=== PATIENT | female | born 1940 | race Caucasian/White ===

== ENCOUNTER 2019-01-21 08:20 | Outpatient (CLI) | payer MEDICARE, OTHER ==
[2019-01-21 11:06] LABS: BASOPHILS % (AUTO) 0.2 %; EOSINOPHILS # (AUTO) 0.2 10^3/uL (0.0-0.7); HGB - HEMOGLOBIN 14.2 g/dL (12.0-16.0); LYMPHOCYTES # (AUTO) 1.8 10^3/uL (1.5-3.5); LYMPHOCYTES % (AUTO) 23.5 %; MEAN CORPUSCULAR HEMOGLOBIN 29.7 pg (27.0-31.0); MEAN CORPUSCULAR HGB CONC 32.7 g/dL (32.0-36.0); MEAN CORPUSCULAR VOLUME 90.6 fL (81.0-99.0); MEAN PLATELET VOLUME 8.3 fL (7.9-10.8); MONOCYTES # (AUTO) 0.6 10^3/uL (0.0-1.0); MONOCYTES % (AUTO) 7.3 %; NEUTROPHILS # (AUTO) 5.2 10^3/uL (1.5-6.6); PLT - PLATELET COUNT 295 10^3/uL (130-450); RED CELL DISTRIBUTION WIDTH 13.7 % (12.0-15.0); WHITE BLOOD COUNT 7.8 x10^3/uL (4.8-10.8)
[2019-01-21 11:27] LABS: ALBUMIN 3.9 g/dL (3.2-5.5); ALBUMIN/GLOBULIN RATIO 1.2 (1.0-2.2); ALKALINE PHOSPHATASE 63 IU/L (42-121); ALT ALANINE AMINOTRANSFERASE 15 IU/L (10-60); AST ASPARTATE AMINOTRANSFERASE 19 IU/L (10-42); BILIRUBIN,TOTAL 0.6 mg/dL (0.2-1.0); BUN - BLOOD UREA NITROGEN 23 mg/dL (6-20); CALCIUM 8.9 mg/dL (8.5-10.3); CARBON DIOXIDE - CO2 25 mmol/L (21-32); CHLORIDE 105 mmol/L (101-111); CHOL/HDL RATIO 6.4 (<4.4); CHOLESTEROL 205 mg/dL; CREATININE 1.1 mg/dL (0.4-1.0); GFR - MDRD 48 (>89); GLUCOSE 115 mg/dL (70-100); HDL CHOLESTEROL 32 mg/dL; LDL CHOLESTEROL,CALCULATED 133 mg/dL; LDL/HDL RATIO 4.2 (<4.4); SODIUM 140 mmol/L (135-145); TOTAL PROTEIN 7.2 g/dL (6.7-8.2); VLDL CHOLESTEROL 40 mg/dL
[2019-01-21 12:02] LABS: HB2 TOTAL 15.4 g/dL; HEMOGLOBIN A1C 0.62 g/dL; HEMOGLOBIN A1C % 5.8 % (4.6-6.2)
== END 2019-01-21 08:21 | disposition home or self-care (01) ==
LOC: LAB.F 08:20
PROVIDERS: ATTEND Registered Nurse
DX: R53.83 Other fatigue (principal); R06.2 Wheezing; F31.9 Bipolar disorder, unspecified; R06.09 Other forms of dyspnea
CPT/HCPCS: 36415; 80053; 80061; 83036; 83721; 84443; 85025

== ENCOUNTER 2019-08-31 14:35 | Outpatient (CLI) | payer MEDICARE, OTHER ==
--- NOTE | 2019-09-01 08:26 | XRAY Report ---
Reason: WHEEZING, SOA Procedure Date: 08/31/2019 Accession Number: [id number] / [id number] Procedure: XRS - Chest 2 View X-Ray CPT Code: 27328 Final Report FULL RESULT: EXAM: CHEST RADIOGRAPHY EXAM DATE: 08/31/2019 02:50 PM. CLINICAL HISTORY: WHEEZING, SOA. COMPARISON: None. TECHNIQUE: 2 views. FINDINGS: Lungs/Pleura: Mild left basilar atelectasis. No pleural effusion. No pneumothorax. Decreased volumes. Right apical pleural thickening. Mediastinum: Heart and mediastinal contours are unremarkable. Other: None. IMPRESSION: Mild left basilar atelectasis RADIA
== END 2019-08-31 14:36 | disposition home or self-care (01) ==
LOC: DI.S 14:35
PROVIDERS: ATTEND Registered Nurse
DX: J98.11 Atelectasis (principal)
CPT/HCPCS: 71046

== ENCOUNTER 2020-12-23 13:10 | Emergency (ER) | payer MEDICARE, OTHER ==
--- NOTE | 2020-12-23 13:37 | ED Physician Documentation ---
PD HPI ALTERED MENTAL STATUS - Stated complaint Stated Complaint: CONFUSION/WEAKNESS - Chief complaint Chief Complaint: Neuro - History obtained from History obtained from: Patient, Family - Additional information Additional information: This is a 80-year-old woman who is a resident of an adult family home because of schizophrenia and bipolar disorder. They took her to urgent care this morning because over the last 4 days or so she has been confused and lethargic. She really has no other complaints. She denies chest pain, pedal edema, calf pain, shortness of breath, cough, urinary symptoms. They did note her to have borderline pulse oximetry's at urgent care and tachycardia. She denies headache. Review of Systems Ten Systems: 10 systems reviewed and negative Constitutional: reports: Chills, Fatigue. denies: Fever Nose: denies: Rhinorrhea / runny nose Throat: denies: Sore throat Cardiac: denies: Chest pain / pressure, Palpitations Respiratory: denies: Dyspnea, Cough PD PAST MEDICAL HISTORY - Present Medications Home Medications: Ambulatory Orders Medication Instructions Recorded Confirmed Albuterol Sulf [Ventolin Hfa 2 puffs INH QID 12/23/20 12/23/20 Inhaler] Ipratropium [Atrovent] 2 puffs INH QID 12/23/20 12/23/20 Levothyroxine Sodium [Synthroid] 50 mcg PO DAILY 12/23/20 12/23/20 Montelukast [Singulair] 10 mg PO DAILY 12/23/20 12/23/20 OLANZapine [Zyprexa] 20 mg PO DAILY 12/23/20 12/23/20 Olanzapine [Zyprexa] 10 mg PO QPM 12/23/20 12/23/20 Sertraline [Zoloft] 50 mg PO DAILY 12/23/20 12/23/20 - Allergies Allergies/Adverse Reactions: Allergies Allergy/AdvReac Type Severity Reaction Status Date / Time Penicillins Allergy Respiratory Verified 12/23/20 13:15 Sulfa (Sulfonamide Allergy Hives Verified 12/23/20 13:15 Antibiotics) PD ED PE NORMAL - Vitals Vital signs reviewed: Yes - General General: Alert and oriented X 3 (fumbles with the hospital name but gets it, knows the date, breakfast) - HEENT HEENT: PERRL, EOMI - Neck Neck: Supple, no meningeal sign, No bony TTP - Cardiac Cardiac: RRR, No murmur - Respiratory Respiratory: No respiratory distress, Clear bilaterally - Abdomen Abdomen: Normal bowel sounds, Soft, Non tender - Back Back: No CVA TTP, No spinal TTP - Derm Derm: Normal color, Warm and dry - Extremities Extremities: No edema, No calf tenderness / cord - Neuro Neuro: Alert and oriented X 3, No motor deficit, No sensory deficit, Normal speech Eye Opening: Spontaneous Motor: Obeys Commands Verbal: Oriented GCS Score: 15 Results - Vitals Vitals: Vital Signs - 24 hr 12/23/20 13:18 Temperature 37.1 C Heart Rate 93 Respiratory 19 Rate Blood Pressure 141/75 H O2 Saturation 100 Oxygen O2 Source Room air - EKG (time done) 1353 Rate: Rate (enter#) (91) Rhythm: NSR (w pac) [place]: LAD QRS: Low voltage Ischemia: Non specific changes. No: ST elevation c/w ischemia, ST depression Computer interpretation: Agree with computer - Labs Labs: Laboratory Tests 12/23/20 12/23/20 12/23/20 13:47 13:47 13:47 WBC 11.1 H RBC 4.60 Hgb 14.1 Hct 43.3 MCV 94.1 MCH 30.7 MCHC 32.6 RDW 13.0 Plt Count 269 MPV 9.1 Neut # (Auto) 7.5 H Lymph # (Auto) 2.2 [place] # (Auto) 1.1 H Eos # (Auto) 0.2 Baso # (Auto) 0.0 Absolute Nucleated RBC 0.00 Nucleated RBC % 0.0 Sodium 137 Potassium 4.2 Chloride 106 Carbon Dioxide 23 Anion Gap 8.0 BUN 23 H Creatinine 0.9 Estimated GFR (MDRD) 61 L Glucose 92 Calcium 9.3 Total Bilirubin 0.5 AST 19 ALT 13 Alkaline Phosphatase 63 Troponin I High Sens 7.8 Total Protein 7.5 Albumin 4.3 Globulin 3.2 Albumin/Globulin Ratio 1.3 Urine Color Urine Clarity Urine pH Ur Specific [place] Urine Protein Urine Glucose (UA) Urine Ketones Urine Occult Blood Urine Nitrite Urine Bilirubin Urine Urobilinogen Ur Leukocyte Esterase Ur Microscopic Review Urine Culture Comments Urine Opiates Screen Ur Oxycodone Screen Urine Methadone Screen Ur Propoxyphene Screen Ur Barbiturates Screen Ur Tricyclics Screen Ur Phencyclidine Scrn Ur Amphetamine Screen U Methamphetamines Scrn U Benzodiazepines Scrn Urine Cocaine Screen U Cannabinoids Screen Ethyl Alcohol 5.7 12/23/20 13:55 WBC RBC Hgb Hct MCV MCH MCHC RDW Plt Count MPV Neut # (Auto) Lymph # (Auto) [place] # (Auto) Eos # (Auto) Baso # (Auto) Absolute Nucleated RBC Nucleated RBC % Sodium Potassium Chloride Carbon Dioxide Anion Gap BUN Creatinine Estimated GFR (MDRD) Glucose Calcium Total Bilirubin AST ALT Alkaline Phosphatase Troponin I High Sens Total Protein Albumin Globulin Albumin/Globulin Ratio Urine Color YELLOW Urine Clarity CLEAR Urine pH 6.0 Ur Specific [place] 1.010 Urine Protein NEGATIVE Urine Glucose (UA) NEGATIVE Urine Ketones NEGATIVE Urine Occult Blood NEGATIVE Urine Nitrite NEGATIVE Urine Bilirubin NEGATIVE Urine Urobilinogen 0.2 (NORMAL) Ur Leukocyte Esterase NEGATIVE Ur Microscopic Review NOT INDICATED Urine Culture Comments NOT INDICATED Urine Opiates Screen NEGATIVE Ur Oxycodone Screen NEGATIVE Urine Methadone Screen NEGATIVE Ur Propoxyphene Screen NEGATIVE Ur Barbiturates Screen NEGATIVE Ur Tricyclics Screen NEGATIVE Ur Phencyclidine Scrn NEGATIVE Ur Amphetamine Screen NEGATIVE U Methamphetamines Scrn NEGATIVE U Benzodiazepines Scrn NEGATIVE Urine Cocaine Screen NEGATIVE U Cannabinoids Screen NEGATIVE Ethyl Alcohol - Rads (name of study) 1v chest xr Radiology: EMP read contemporaneously (normal) PD MEDICAL DECISION MAKING - ED course ED course: 80-year-old woman with predominantly psychiatric history presents with confusion per POA/family, albeit seems mild on exam. Otherwise her exam and work-up was unremarkable here without a clear cause for this. There was no headache or focal neurologic deficit. Patient has no complaints. Close watchful waiting and return precautions were advised. Departure - Departure Disposition: 01 Home, Self Care Clinical Impression: Confusion Condition: Good Record reviewed to determine appropriate education?: Yes Instructions: ED Confusion Comments: No clear cause for confusion today. Call your psychiatrist to see if he/she wants to see you or change psychiatric medications. Return if worse in any way.
[2020-12-23 13:53] LABS: BASOPHILS % (AUTO) 0.1 %; EOSINOPHILS # (AUTO) 0.2 10^3/uL (0.0-0.7); EOSINOPHILS % (AUTO) 1.9 %; HCT - HEMATOCRIT 43.3 % (37.0-47.0); HGB - HEMOGLOBIN 14.1 g/dL (12.0-16.0); LYMPHOCYTES # (AUTO) 2.2 10^3/uL (1.5-3.5); LYMPHOCYTES % (AUTO) 19.4 %; MEAN CORPUSCULAR HEMOGLOBIN 30.7 pg (27.0-31.0); MEAN CORPUSCULAR HGB CONC 32.6 g/dL (32.0-36.0); MEAN CORPUSCULAR VOLUME 94.1 fL (81.0-99.0); MEAN PLATELET VOLUME 9.1 fL (7.9-10.8); MONOCYTES # (AUTO) 1.1 10^3/uL (0.0-1.0); MONOCYTES % (AUTO) 10.3 %; NEUTROPHILS # (AUTO) 7.5 10^3/uL (1.5-6.6); PLT - PLATELET COUNT 269 10^3/uL (130-450); WHITE BLOOD COUNT 11.1 x10^3/uL (4.8-10.8)
--- NOTE | 2020-12-23 13:56 | XRAY Report ---
PROCEDURE: Chest 1 View X-Ray INDICATIONS: hypoxemia TECHNIQUE: One view of the chest was acquired. COMPARISON: None FINDINGS: Surgical changes and devices: None. Lungs and pleura: No pleural effusions or pneumothorax. Lungs are clear. Mediastinum: Mediastinal contours appear normal. Heart size is normal. Bones and chest wall: No suspicious bony lesions. Overlying soft tissues appear unremarkable. IMPRESSION: Normal chest x-ray. Reviewed by: Jaun Alvarez on 12/23/2020 1:55 PM PDT Approved by: Jaun Alvarez on 12/23/2020 1:55 PM PDT Station ID: [id number]
[2020-12-23 13:59] LABS: MUDS CUTOFF CONCENTRATIONS CUTOFF CONC BELOW:
[2020-12-23 14:02] LABS: BILIRUBIN,URINE NEGATIVE (NEGATIVE); GLUCOSE, URINE (UA) NEGATIVE (NEGATIVE); KETONES,URINE (UA) NEGATIVE (NEGATIVE); LEUKOCYTE ESTERASE, URINE NEGATIVE (NEGATIVE); NITRITE,URINE NEGATIVE (NEGATIVE); OCCULT BLOOD,URINE NEGATIVE (NEGATIVE); PROTEIN,URINE NEGATIVE (NEGATIVE); UROBILINOGEN,URINE 0.2 (NORMAL) E.U./dL (NORMAL)
[2020-12-23 14:04] LABS: CLARITY,URINE CLEAR (CLEAR)
[2020-12-23 14:09] LABS: ALBUMIN 4.3 g/dL (3.2-5.5); ALBUMIN/GLOBULIN RATIO 1.3 (1.0-2.2); BILIRUBIN,TOTAL 0.5 mg/dL (0.2-1.0); CALCIUM 9.3 mg/dL (8.5-10.3); CREATININE 0.9 mg/dL (0.4-1.0); ETOH - ETHANOL 5.7 mg/dL; POTASSIUM 4.2 mmol/L (3.5-5.0); TOTAL PROTEIN 7.5 g/dL (6.7-8.2)
[2020-12-23 14:13] LABS: AMPHETAMINE SCREEN,URINE NEGATIVE (NEGATIVE); BARBITURATE SCREEN,UR NEGATIVE (NEGATIVE); BENZODIAZEPINES SCREEN, URINE NEGATIVE (NEGATIVE); COCAINE SCREEN URINE NEGATIVE (NEGATIVE); METHADONE SCREEN, URINE NEGATIVE (NEGATIVE); METHAMPHETAMINES SCREEN, URINE NEGATIVE (NEGATIVE); OPIATE SCREEN, URINE NEGATIVE (NEGATIVE); OXYCODONE SCREEN, URINE NEGATIVE (NEGATIVE); PROPOXYPHENE SCREEN, URINE NEGATIVE (NEGATIVE); THC CANNABINOID SCREEN, URINE NEGATIVE (NEGATIVE); TRICYCLIC ANTIDEPRESSANT,URINE NEGATIVE (NEGATIVE)
[2020-12-23 14:37] VITALS: BP 118/69
== END 2020-12-23 14:38 | disposition home or self-care (01) ==
LOC: ED 13:10
DX: R41.0 Disorientation, unspecified (principal); R53.83 Other fatigue; I49.1 Atrial premature depolarization; F25.0 Schizoaffective disorder, bipolar type
CPT/HCPCS: 36415; 71045; 80053; 80306; 81003; 84484; 85025; 93005; 99283; 99284; G0480; 80320; 81001; 87086

== ENCOUNTER 2021-02-15 08:00 | Outpatient (CLI) | payer MEDICARE, OTHER ==
[2021-02-15 20:32] LABS: BILIRUBIN,URINE NEGATIVE (NEGATIVE); GLUCOSE, URINE (UA) NEGATIVE (NEGATIVE); KETONES,URINE (UA) NEGATIVE (NEGATIVE); LEUKOCYTE ESTERASE, URINE SMALL (NEGATIVE); NITRITE,URINE NEGATIVE (NEGATIVE); OCCULT BLOOD,URINE NEGATIVE (NEGATIVE); PROTEIN,URINE NEGATIVE (NEGATIVE); UROBILINOGEN,URINE 1 (NORMAL) E.U./dL (NORMAL)
[2021-02-15 20:50] LABS: BACTERIA,URINE Many /HPF (None Seen); CLARITY,URINE CLEAR (CLEAR); RBC,URINE 0-5 /HPF (0-5); SQUAMOUS EPITHELIAL CELL,UR FEW Squamous (<= Few)
== END 2021-02-15 23:59 | disposition home or self-care (01) ==
LOC: LAB.S 08:00
PROVIDERS: ATTEND Emergency Medicine
DX: R30.0 Dysuria (principal)
CPT/HCPCS: 81001; 87086

== ENCOUNTER 2021-07-04 14:19 | Outpatient (CLI) | payer MEDICARE, OTHER ==
[2021-07-04 14:36] LABS: BASOPHILS % (AUTO) 0.1 %; EOSINOPHILS # (AUTO) 0.2 10^3/uL (0.0-0.7); EOSINOPHILS % (AUTO) 2.5 %; HGB - HEMOGLOBIN 13.8 g/dL (12.0-16.0); LYMPHOCYTES # (AUTO) 2.3 10^3/uL (1.5-3.5); LYMPHOCYTES % (AUTO) 26.8 %; MEAN CORPUSCULAR HEMOGLOBIN 30.3 pg (27.0-31.0); MEAN CORPUSCULAR HGB CONC 32.1 g/dL (32.0-36.0); MEAN CORPUSCULAR VOLUME 94.3 fL (81.0-99.0); MEAN PLATELET VOLUME 9.4 fL (7.9-10.8); MONOCYTES # (AUTO) 0.7 10^3/uL (0.0-1.0); NEUTROPHILS # (AUTO) 5.5 10^3/uL (1.5-6.6); NEUTROPHILS % (AUTO) 62.4 %; PLT - PLATELET COUNT 254 10^3/uL (130-450); RED BLOOD COUNT 4.56 10^6/uL (4.20-5.40); RED CELL DISTRIBUTION WIDTH 13.5 % (12.0-15.0); WHITE BLOOD COUNT 8.7 x10^3/uL (4.8-10.8)
[2021-07-04 14:55] LABS: ALBUMIN 4.2 g/dL (3.2-5.5); ALBUMIN/GLOBULIN RATIO 1.4 (1.0-2.2); ALKALINE PHOSPHATASE 61 IU/L (42-121); ALT ALANINE AMINOTRANSFERASE 14 IU/L (10-60); AST ASPARTATE AMINOTRANSFERASE 17 IU/L (10-42); BILIRUBIN,TOTAL 0.8 mg/dL (0.2-1.0); BUN - BLOOD UREA NITROGEN 22 mg/dL (6-20); CALCIUM 9.5 mg/dL (8.5-10.3); CARBON DIOXIDE - CO2 26 mmol/L (21-32); CHLORIDE 101 mmol/L (101-111); CHOL/HDL RATIO 5.8 (<4.4); CHOLESTEROL 208 mg/dL; CREATININE 1.2 mg/dL (0.4-1.0); GFR - MDRD 43 (>89); GLUCOSE 123 mg/dL (70-100); HDL CHOLESTEROL 36 mg/dL; LDL CHOLESTEROL,CALCULATED 94 mg/dL; LDL/HDL RATIO 2.6 (<4.4); POTASSIUM 3.9 mmol/L (3.5-5.0); SODIUM 141 mmol/L (135-145); TOTAL PROTEIN 7.2 g/dL (6.7-8.2); TRIGLYCERIDES 392 mg/dL; VLDL CHOLESTEROL 78 mg/dL
[2021-07-04 15:06] LABS: THYROID STIMULATING HORMONE 3.41 uIU/mL (0.34-5.60)
== END 2021-07-04 14:20 | disposition home or self-care (01) ==
LOC: LAB 14:19
PROVIDERS: ATTEND Registered Nurse
DX: F20.9 Schizophrenia, unspecified (principal); R53.83 Other fatigue; F31.9 Bipolar disorder, unspecified; J44.9 Chronic obstructive pulmonary disease, unspecified
CPT/HCPCS: 36415; 80053; 80061; 83721; 84443; 85025

== ENCOUNTER 2021-07-18 10:47 | Outpatient (CLI) | payer MEDICARE, OTHER | END 2021-07-18 10:48 | disposition critical access hospital (66) | LOC: EMS 10:47 | DX: R46.89 Other symptoms and signs involving appearance and behavior (principal) | CPT/HCPCS: A0425; A0429 ==

== ENCOUNTER 2021-07-18 11:03 | Emergency (ER) | payer MEDICARE, OTHER ==
[2021-07-18 11:30] LABS: MUDS CUTOFF CONCENTRATIONS CUTOFF CONC BELOW:
--- NOTE | 2021-07-18 11:35 | ED Physician Documentation ---
History of Present Illness - Stated complaint Stated Complaint: ALOC - Chief complaint Chief Complaint: General - History obtained from History obtained from: Patient, EMS - History of Present Illness Timing: Today Pain level max: 0 Pain level now: 0 - Additonal information Additional information: Patient is a 80-year-old female with a history of schizophrenia and bipolar who was brought in by EMS today. She lives in an adult family home and allegedly recently she has been "acting different than normal". It is unclear exactly how she has different than normal. The patient states that she has made changes in her life to make her happier and she is feeling happier than she normally feels. The patient has no complaints. Denies any hallucinations. Denies any suicidal or homicidal ideation. No fevers. No chills. Nothing makes it better or worse. Review of Systems Ten Systems: 10 systems reviewed and negative Constitutional: denies: Fever, Chills Respiratory: denies: Cough GI: denies: Nausea, Vomiting, Diarrhea Skin: denies: Rash Musculoskeletal: denies: Neck pain, Back pain Neurologic: denies: Headache Psychiatric: denies: Depressed, Suicidal, Homicidal, Hallucinations, Anxiety PD PAST MEDICAL HISTORY - Past Medical History Past Medical History: Yes Cardiovascular: None Respiratory: COPD Neuro: None Endocrine/Autoimmune: None GI: GERD EMERGENCY MEDICAL TECHNICIAN BASIC: None : None HEENT: Chronic vision loss Psych: Depression, Bipolar disorder, Schizophrenia Musculoskeletal: None Derm: None - Past Surgical History Past Surgical History: Yes /EMERGENCY MEDICAL TECHNICIAN BASIC: Tubal ligation - Present Medications Home Medications: Ambulatory Orders Medication Instructions Recorded Confirmed Albuterol Sulf [Ventolin Hfa 2 puffs INH Q4HR PRN 12/23/20 07/18/21 Inhaler] Ipratropium [Atrovent] 2 puffs INH QID 12/23/20 12/23/20 Levothyroxine Sodium [Synthroid] 50 mcg PO DAILY 12/23/20 12/23/20 Montelukast [Singulair] 10 mg PO DAILY 12/23/20 12/23/20 OLANZapine [Zyprexa] 10 mg PO QPM 12/23/20 07/18/21 OLANZapine [Zyprexa] 20 mg PO DAILY 12/23/20 07/18/21 Sertraline [Zoloft] 50 mg PO DAILY 12/23/20 07/18/21 Nitrofurantoin [Macrobid] 100 mg PO BID #10 cap 07/18/21 QUEtiapine [SEROquel] 100 mg PO QPM 07/18/21 07/18/21 - Allergies Allergies/Adverse Reactions: Allergies Allergy/AdvReac Type Severity Reaction Status Date / Time Penicillins Allergy Respiratory Verified 07/18/21 11:19 Sulfa (Sulfonamide Allergy Hives Verified 07/18/21 11:19 Antibiotics) - Social History Does the pt smoke?: No Smoking Status: Never smoker Does the pt drink ETOH?: Yes Does the pt have substance abuse?: Yes - Immunizations Immunizations are current?: Yes PD ED PE NORMAL - Vitals Vital signs reviewed: Yes - General General: Alert and oriented X 3, No acute distress, Well developed/nourished - HEENT HEENT: Atraumatic, PERRL, Moist mucous membranes - Neck Neck: Supple, no meningeal sign - Cardiac Cardiac: RRR, Strong equal pulses - Respiratory Respiratory: No respiratory distress, Clear bilaterally - Abdomen Abdomen: Soft, Non tender, Non distended - Derm Derm: Warm and dry - Extremities Extremities: No edema - Neuro Neuro: Alert and oriented X 3 - Psych Psych: Normal mood, Normal affect Results - Vitals Vitals: Vital Signs - 24 hr 07/18/21 07/18/21 11:19 11:37 Temperature 36.2 C L Heart Rate 108 H 101 H Respiratory 18 16 Rate Blood Pressure 186/86 H 134/85 H O2 Saturation 97 94 Oxygen O2 Source Room air - Labs Labs: Laboratory Tests 07/18/21 07/18/21 07/18/21 11:19 11:46 11:46 WBC 9.8 RBC 4.49 Hgb 13.7 Hct 41.9 MCV 93.3 MCH 30.5 MCHC 32.7 RDW 13.4 Plt Count 262 MPV 9.2 Neut # (Auto) 6.9 H Lymph # (Auto) 1.9 [place] # (Auto) 0.7 Eos # (Auto) 0.2 Baso # (Auto) 0.0 Absolute Nucleated RBC 0.00 Nucleated RBC % 0.0 Sodium 138 Potassium 4.0 Chloride 102 Carbon Dioxide 25 Anion Gap 11.0 BUN 24 H Creatinine 1.0 Estimated GFR (MDRD) 54 L Glucose 109 H Calcium 9.3 Total Bilirubin 0.5 AST 20 ALT 17 Alkaline Phosphatase 47 Total Protein 7.7 Albumin 4.5 Globulin 3.2 Albumin/Globulin Ratio 1.4 Lipase 31 TSH Urine Color YELLOW Urine Clarity HAZY Urine pH 5.5 Ur Specific [place] 1.020 Urine Protein NEGATIVE Urine Glucose (UA) NEGATIVE Urine Ketones NEGATIVE Urine Occult Blood NEGATIVE Urine Nitrite NEGATIVE Urine Bilirubin NEGATIVE Urine Urobilinogen 0.2 (NORMAL) Ur Leukocyte Esterase SMALL H Urine RBC 0-5 Urine WBC 6-10 H Ur Squamous Epith Cells MANY Squamous H Urine Bacteria Many H Ur Microscopic Review INDICATED Urine Culture Comments NOT INDICATED Salicylates < 6.0 Urine Opiates Screen NEGATIVE Ur Oxycodone Screen NEGATIVE Urine Methadone Screen NEGATIVE Ur Propoxyphene Screen NEGATIVE Acetaminophen 11 Ur Barbiturates Screen NEGATIVE Ur Tricyclics Screen POSITIVE H Ur Phencyclidine Scrn NEGATIVE Ur Amphetamine Screen NEGATIVE U Methamphetamines Scrn NEGATIVE U Benzodiazepines Scrn NEGATIVE Urine Cocaine Screen NEGATIVE U Cannabinoids Screen NEGATIVE Ethyl Alcohol < 5.0 07/18/21 11:46 WBC RBC Hgb Hct MCV MCH MCHC RDW Plt Count MPV Neut # (Auto) Lymph # (Auto) [place] # (Auto) Eos # (Auto) Baso # (Auto) Absolute Nucleated RBC Nucleated RBC % Sodium Potassium Chloride Carbon Dioxide Anion Gap BUN Creatinine Estimated GFR (MDRD) Glucose Calcium Total Bilirubin AST ALT Alkaline Phosphatase Total Protein Albumin Globulin Albumin/Globulin Ratio Lipase TSH 3.32 Urine Color Urine Clarity Urine pH Ur Specific [place] Urine Protein Urine Glucose (UA) Urine Ketones Urine Occult Blood Urine Nitrite Urine Bilirubin Urine Urobilinogen Ur Leukocyte Esterase Urine RBC Urine WBC Ur Squamous Epith Cells Urine Bacteria Ur Microscopic Review Urine Culture Comments Salicylates Urine Opiates Screen Ur Oxycodone Screen Urine Methadone Screen Ur Propoxyphene Screen Acetaminophen Ur Barbiturates Screen Ur Tricyclics Screen Ur Phencyclidine Scrn Ur Amphetamine Screen U Methamphetamines Scrn U Benzodiazepines Scrn Urine Cocaine Screen U Cannabinoids Screen Ethyl Alcohol PD MEDICAL DECISION MAKING - ED course Complexity details: reviewed results, re-evaluated patient, considered differential, d/w patient ED course: Patient is a 80-year-old female with a UTI. Will place on antibiotics for this. She is awake, alert, oriented here. No hallucinations. Patient will follow up with her doctor for further care. This document was made in part using voice recognition software. While efforts are made to proofread this document, sound alike and grammatical errors may occur. Departure - Departure Disposition: Home, Self Care Clinical Impression: UTI (urinary tract infection) Qualifiers: Urinary tract infection type: acute cystitis Hematuria presence: without hematuria Qualified Code(s): N30.00 - Acute cystitis without hematuria Condition: Good Instructions: ED UTI Cystitis Male Follow-Up: your,doctor in 1 week [Other] Prescriptions: Nitrofurantoin [Macrobid] 100 mg PO BID #10 cap Comments: Your prescriptions were sent to the [facility] pharmacy. You can pick them up there. Return if she worsens.
[2021-07-18 11:43] LABS: BILIRUBIN,URINE NEGATIVE (NEGATIVE); GLUCOSE, URINE (UA) NEGATIVE (NEGATIVE); KETONES,URINE (UA) NEGATIVE (NEGATIVE); LEUKOCYTE ESTERASE, URINE SMALL (NEGATIVE); NITRITE,URINE NEGATIVE (NEGATIVE); OCCULT BLOOD,URINE NEGATIVE (NEGATIVE); PH,URINE 5.5 PH (5.0-7.5); PROTEIN,URINE NEGATIVE (NEGATIVE); UROBILINOGEN,URINE 0.2 (NORMAL) E.U./dL (NORMAL)
[2021-07-18 11:46] LABS: CLARITY,URINE HAZY (CLEAR)
[2021-07-18 11:55] LABS: BACTERIA,URINE Many /HPF (None Seen); RBC,URINE 0-5 /HPF (0-5); SQUAMOUS EPITHELIAL CELL,UR MANY Squamous (<= Few)
[2021-07-18 11:57] LABS: AMPHETAMINE SCREEN,URINE NEGATIVE (NEGATIVE); BARBITURATE SCREEN,UR NEGATIVE (NEGATIVE); BENZODIAZEPINES SCREEN, URINE NEGATIVE (NEGATIVE); COCAINE SCREEN URINE NEGATIVE (NEGATIVE); METHADONE SCREEN, URINE NEGATIVE (NEGATIVE); METHAMPHETAMINES SCREEN, URINE NEGATIVE (NEGATIVE); OPIATE SCREEN, URINE NEGATIVE (NEGATIVE); OXYCODONE SCREEN, URINE NEGATIVE (NEGATIVE); PROPOXYPHENE SCREEN, URINE NEGATIVE (NEGATIVE); THC CANNABINOID SCREEN, URINE NEGATIVE (NEGATIVE); TRICYCLIC ANTIDEPRESSANT,URINE POSITIVE (NEGATIVE)
[2021-07-18 11:58] LABS: BASOPHILS % (AUTO) 0.1 %; EOSINOPHILS # (AUTO) 0.2 10^3/uL (0.0-0.7); EOSINOPHILS % (AUTO) 2.2 %; HCT - HEMATOCRIT 41.9 % (37.0-47.0); HGB - HEMOGLOBIN 13.7 g/dL (12.0-16.0); LYMPHOCYTES # (AUTO) 1.9 10^3/uL (1.5-3.5); LYMPHOCYTES % (AUTO) 19.3 %; MEAN CORPUSCULAR HEMOGLOBIN 30.5 pg (27.0-31.0); MEAN CORPUSCULAR HGB CONC 32.7 g/dL (32.0-36.0); MEAN CORPUSCULAR VOLUME 93.3 fL (81.0-99.0); MEAN PLATELET VOLUME 9.2 fL (7.9-10.8); MONOCYTES # (AUTO) 0.7 10^3/uL (0.0-1.0); MONOCYTES % (AUTO) 7.3 %; NEUTROPHILS # (AUTO) 6.9 10^3/uL (1.5-6.6); NEUTROPHILS % (AUTO) 70.7 %; PLT - PLATELET COUNT 262 10^3/uL (130-450); RED BLOOD COUNT 4.49 10^6/uL (4.20-5.40); RED CELL DISTRIBUTION WIDTH 13.4 % (12.0-15.0); WHITE BLOOD COUNT 9.8 x10^3/uL (4.8-10.8)
[2021-07-18 12:16] LABS: ACETAMINOPHEN 11 ug/mL (10-30); ALBUMIN 4.5 g/dL (3.2-5.5); ALBUMIN/GLOBULIN RATIO 1.4 (1.0-2.2); ALKALINE PHOSPHATASE 47 IU/L (42-121); ALT ALANINE AMINOTRANSFERASE 17 IU/L (10-60); AST ASPARTATE AMINOTRANSFERASE 20 IU/L (10-42); BILIRUBIN,TOTAL 0.5 mg/dL (0.2-1.0); BUN - BLOOD UREA NITROGEN 24 mg/dL (6-20); CALCIUM 9.3 mg/dL (8.5-10.3); CARBON DIOXIDE - CO2 25 mmol/L (21-32); CHLORIDE 102 mmol/L (101-111); ETOH - ETHANOL < 5.0 mg/dL; GFR - MDRD 54 (>89); GLUCOSE 109 mg/dL (70-100); LIPASE 31 U/L (22-51); SALICYLATE < 6.0 mg/dL; SODIUM 138 mmol/L (135-145); TOTAL PROTEIN 7.7 g/dL (6.7-8.2)
[2021-07-18] MEDS: NITROFURANTOIN MACRO 100 MG CAPSULE PO STA (12:55)
[2021-07-18 13:57] VITALS: BP 147/85
== END 2021-07-18 13:57 | disposition home or self-care (01) ==
LOC: EDUNIT# → ED 11:03
DX: N30.00 Acute cystitis without hematuria (principal); F20.9 Schizophrenia, unspecified; F31.9 Bipolar disorder, unspecified
CPT/HCPCS: 36415; 80053; 80306; 80307; 81001; 83690; 84443; 85025; 99283; A9270; G0480; 80320; 80329; 81003; 87086

== ENCOUNTER 2021-07-25 08:00 | Outpatient (CLI) | payer MEDICARE, OTHER ==
[2021-07-25 20:47] LABS: BILIRUBIN,URINE NEGATIVE (NEGATIVE); GLUCOSE, URINE (UA) NEGATIVE (NEGATIVE); KETONES,URINE (UA) NEGATIVE (NEGATIVE); LEUKOCYTE ESTERASE, URINE NEGATIVE (NEGATIVE); NITRITE,URINE NEGATIVE (NEGATIVE); OCCULT BLOOD,URINE NEGATIVE (NEGATIVE); PH,URINE 7.5 PH (5.0-7.5); PROTEIN,URINE NEGATIVE (NEGATIVE); UROBILINOGEN,URINE 0.2 (NORMAL) E.U./dL (NORMAL)
[2021-07-25 20:51] LABS: CLARITY,URINE CLEAR (CLEAR)
[2021-07-25 20:53] LABS: BACTERIA,URINE Few /HPF (None Seen); RBC,URINE 0-5 /HPF (0-5); SQUAMOUS EPITHELIAL CELL,UR MOD Squamous (<= Few); WBC,URINE 0-3 /HPF (0-5)
== END 2021-07-25 23:59 ==
LOC: LAB 08:00
PROVIDERS: ATTEND Emergency Medicine
DX: R30.0 Dysuria (principal)
CPT/HCPCS: 81001; 87086

== ENCOUNTER 2022-01-23 14:33 | Outpatient (CLI) | payer MEDICARE, OTHER, MEDICAID ==
--- NOTE | 2022-01-24 08:59 | Mammography Report ---
BILATERAL DIGITAL SCREENING MAMMOGRAM: 01/23/2022 CLINICAL: Baseline exam Routine screening. No prior exams were available for comparison. There are scattered fibroglandular elements in both br easts. No significant masses, calcifications, or other findings are seen in either breast. IMPRESSION: NEGATIVE There is no mammographic evidence of malignancy. A 1 year screening mammogram is recommended. This exam was interpreted at Station ID: [id number]. NOTE: For mammograms, a report in lay terms will be sent to the patient. Approximately 15% of breast malignancies will not be visualized mammographically. In the management of a palpable breast mass, a negative mammogram must not discourage biopsy of a clinically suspicious lesion. Electronically Signed By: Chester Fountain M.D., jr/naomi:01/23/2022 16:37:27 ACR BI-RADS Category 1: Negative 3341F PARENCHYMAL PATTERN: (A) - The breast(s) demonstrate(s) scattered fibroglandular densities. BI-RADS CATEGORY: (1) - 1 RECOMMENDATION: (ANNUAL) - Recommend routine annual screening mammography. [id number] 1 year screening LATERALITY: (B)
== END 2022-01-23 14:34 | disposition home or self-care (01) ==
LOC: DI.N 14:33
DX: Z12.31 Encounter for screening mammogram for malignant neoplasm of breast (principal)

== ENCOUNTER 2022-07-23 08:00 | Outpatient (CLI) | payer MEDICARE, OTHER, MEDICAID ==
[2022-07-23 19:00] LABS: BILIRUBIN,URINE NEGATIVE (NEGATIVE); GLUCOSE, URINE (UA) NEGATIVE (NEGATIVE); KETONES,URINE (UA) NEGATIVE (NEGATIVE); LEUKOCYTE ESTERASE, URINE TRACE (NEGATIVE); NITRITE,URINE NEGATIVE (NEGATIVE); OCCULT BLOOD,URINE NEGATIVE (NEGATIVE); PH,URINE 6.5 PH (5.0-7.5); PROTEIN,URINE NEGATIVE (NEGATIVE); UROBILINOGEN,URINE 0.2 (NORMAL) E.U./dL (NORMAL)
[2022-07-23 19:07] LABS: CLARITY,URINE HAZY (CLEAR); RBC,URINE None Seen /HPF (0-5); WBC,URINE 0-3 /HPF (0-5)
[2022-07-23 19:08] LABS: BACTERIA,URINE None Seen /HPF (None Seen); SQUAMOUS EPITHELIAL CELL,UR FEW Squamous (<= Few)
== END 2022-07-23 23:59 | disposition home or self-care (01) ==
LOC: LAB.R 08:00
PROVIDERS: ATTEND Internal Medicine
DX: R39.9 Unspecified symptoms and signs involving the genitourinary system (principal)
CPT/HCPCS: 81001; 87086

== ENCOUNTER 2023-06-14 15:42 | Emergency (ER) | payer MEDICARE, OTHER, MEDICAID ==
[2023-06-14 16:44] LABS: BASOPHILS % (AUTO) 0.2 %; EOSINOPHILS # (AUTO) 0.3 10^3/uL (0.0-0.7); HCT - HEMATOCRIT 42.7 % (37.0-47.0); LYMPHOCYTES # (AUTO) 2.5 10^3/uL (1.5-3.5); LYMPHOCYTES % (AUTO) 31.2 %; MEAN CORPUSCULAR HEMOGLOBIN 31.7 pg (27.0-31.0); MEAN CORPUSCULAR HGB CONC 32.8 g/dL (32.0-36.0); MEAN CORPUSCULAR VOLUME 96.6 fL (81.0-99.0); MEAN PLATELET VOLUME 9.7 fL (7.9-10.8); MONOCYTES # (AUTO) 0.9 10^3/uL (0.0-1.0); MONOCYTES % (AUTO) 11.5 %; NEUTROPHILS # (AUTO) 4.2 10^3/uL (1.5-6.6); NEUTROPHILS % (AUTO) 52.9 %; PLT - PLATELET COUNT 246 10^3/uL (130-450); RED BLOOD COUNT 4.42 10^6/uL (4.20-5.40)
[2023-06-14 17:02] LABS: ALBUMIN 4.4 g/dL (3.2-5.5); ALBUMIN/GLOBULIN RATIO 1.9 (1.0-2.2); BILIRUBIN,TOTAL 0.3 mg/dL (0.2-1.0); CALCIUM 9.6 mg/dL (8.5-10.3); CREATININE 1.1 mg/dL (0.6-1.3); POTASSIUM 4.4 mmol/L (3.5-4.5); TOTAL PROTEIN 6.7 g/dL (6.4-8.9)
--- NOTE | 2023-06-14 17:21 | ED Physician Documentation ---
History of Present Illness - Stated complaint Stated Complaint: - Chief complaint Chief Complaint: General - History obtained from History obtained from: Patient, Family - Additonal information Additional information: 82-year-old woman with history of asthma and some sort of psychiatric problem as she is on antipsychotics and in a long term. While showering today she had large-volume single episode vaginal bleeding early this afternoon which has not recurred. No pain. No history of vaginal bleeding or pelvic issues. PD PAST MEDICAL HISTORY - Past Medical History Cardiovascular: None Respiratory: COPD Neuro: None Endocrine/Autoimmune: None GI: GERD CHIEF OF HOSPITAL MEDICINE: None : None HEENT: Chronic vision loss Psych: Depression, Bipolar disorder, Schizophrenia Musculoskeletal: None Derm: None - Past Surgical History Past Surgical History: Yes /CHIEF OF HOSPITAL MEDICINE: Tubal ligation - Present Medications Home Medications: Ambulatory Orders Medication Instructions Recorded Confirmed Albuterol Sulf [Ventolin Hfa 2 puffs INH Q4HR PRN 12/23/20 06/14/23 Inhaler] Ipratropium [Atrovent] 2 puffs INH QID 12/23/20 06/14/23 Levothyroxine Sodium [Synthroid] 50 mcg PO DAILY 12/23/20 06/14/23 Montelukast [Singulair] 10 mg PO DAILY 12/23/20 06/14/23 OLANZapine [Zyprexa] 10 mg PO QPM 12/23/20 07/18/21 OLANZapine [Zyprexa] 20 mg PO DAILY 12/23/20 06/14/23 Sertraline [Zoloft] 50 mg PO DAILY 12/23/20 06/14/23 Nitrofurantoin [Macrobid] 100 mg PO BID #10 cap 07/18/21 QUEtiapine [SEROquel] 100 mg PO QPM 07/18/21 06/14/23 - Allergies Allergies/Adverse Reactions: Allergies Allergy/AdvReac Type Severity Reaction Status Date / Time Penicillins Allergy Respiratory Verified 07/18/21 11:19 Sulfa (Sulfonamide Allergy Hives Verified 07/18/21 11:19 Antibiotics) - Social History Does the pt smoke?: No Smoking Status: Never smoker Does the pt drink ETOH?: Yes Does the pt have substance abuse?: Yes - Immunizations Immunizations are current?: Yes PD ED PE NORMAL - Vitals Vital signs reviewed: Yes - General General: Alert and oriented X 3, No acute distress - Abdomen Abdomen: Normal bowel sounds, Soft, Non tender - Female Female : Other (Pelvic exam done with Tena SADLER. She has no blood in the vault, no prolapse.) - Neuro Neuro: Alert and oriented X 3, Normal speech Results - Vitals Vitals: Vital Signs - 24 hr 06/14/23 06/14/23 06/14/23 16:00 16:06 18:06 Temperature 36.7 C 36.7 C 36.7 C Heart Rate 96 96 88 Respiratory 20 20 18 Rate Blood Pressure 147/81 H 147/81 H 140/80 H O2 Saturation 95 95 98 06/14/23 19:41 Temperature 36.6 C Heart Rate 82 Respiratory 16 Rate Blood Pressure 130/80 O2 Saturation 100 Oxygen O2 Source Room air - Labs Labs: Laboratory Tests 06/14/23 06/14/23 16:38 16:38 WBC 8.0 RBC 4.42 Hgb 14.0 Hct 42.7 MCV 96.6 MCH 31.7 H MCHC 32.8 RDW 13.0 Plt Count 246 MPV 9.7 Neut # (Auto) 4.2 Lymph # (Auto) 2.5 [place] # (Auto) 0.9 Eos # (Auto) 0.3 Baso # (Auto) 0.0 Absolute Nucleated RBC 0.00 Nucleated RBC % 0.0 Sodium 141 Potassium 4.4 Chloride 105 Carbon Dioxide 28 Anion Gap 8.0 BUN 24 H Creatinine 1.1 Estimated GFR (MDRD) 48 L Glucose 104 Calcium 9.6 Total Bilirubin 0.3 AST 12 ALT 10 Alkaline Phosphatase 57 Total Protein 6.7 Albumin 4.4 Globulin 2.3 Albumin/Globulin Ratio 1.9 Lipase 26 PD Medical Decision Making - ED course ED course: She presents with painless vaginal bleeding. That said on examination there was no blood in the vagina, ultrasound showing no evidence of cancerous lesion and subsequently she did have a little more blood on the toilet seat posteriorly while here when she was urinating but the urine was clear grossly anyway. I went back and reexamined her and she actually had a little sore that was kind like a fissure anterior to the rectum that looks like it was recently bleeding. The quoter reported the ultrasound is being normal with the exception of high postvoid residual. Subsequently I viewed the formal result which shows show was concerning for thickened endometrium so I called and left a voicemail for the daughter to call me back as she probably will still need to see gynecology even though her bleeding source was not from her uterus. Departure - Departure Disposition: 01 Home, Self Care Clinical Impression: Anal fissure Condition: Good Comments: The source of the bleeding was a fissure anterior to the rectum. I would recommend a barrier cream such as Desitin on it and it should heal well. Return if worse. Follow-up with your primary care physician, next available appointment. Blood work and ultrasound were unremarkable except for a high postvoid residual which is likely chronic and unrelated. Forms: PCP List Discharge Date/Time: 06/14/23 19:41
[2023-06-14 19:46] VITALS: BP 130/80; O2SAT 100
--- NOTE | 2023-06-14 19:48 | Ultrasound Report ---
PROCEDURE: Pelvic Complete INDICATIONS: Postmenopausal bleeding TECHNIQUE: Real-time transabdominal scanning was performed of the pelvic organs, with image documentation. COMPARISON: None FINDINGS: Uterus: Uterus is anteverted and normal in size at 6.5 x 3.2 x 4 cm. The myometrium is heterogeneou s. No discrete uterine fibroids. The endometrium measures 5.5 mm in combined thickness. Endometrium is heterogeneous in echotexture. No discrete endometrial mass or fluid is seen. Ovaries: The right ovary measures 1.5 x 1 x 1 cm. The left ovary measures 1.2 x 1.3 x 1.2 cm. No adn exal masses are seen. Other: No free pelvic fluid. Incidentally noted of large amount of postvoid residual in the urinary bladder measures 399 cc. IMPRESSION: 1. Thickened endometrium for patient's age with heterogeneous echotexture concerning for endometrial hyperplasia. No definite endometrial mass or fluid is seen. HUMAN RESOURCES FILE CLERK correlation is recommended. 2. Heterogeneous myometrial echotexture. No discrete uterine fibroids. 3. No gross abnormality is seen in atrophic appearing bilateral ovaries. 4. Incidentally noted of large post void residual within urinary bladder. No discrete bladder wall ma ss. Reviewed by: Andrews Marin MD on 06/14/2023 7:47 PM PDT Approved by: Andrews Marin MD on 06/14/2023 7:47 PM PDT Station ID: [id number]
== END 2023-06-14 19:41 | disposition home or self-care (01) ==
LOC: ED 15:42
DX: K60.2 Anal fissure, unspecified (principal); R93.89 Abnormal findings on diagnostic imaging of other specified body structures
CPT/HCPCS: 36415; 80053; 83690; 85025; 99283; 99284

== ENCOUNTER 2023-08-09 12:40 | Outpatient (CLI) | payer MEDICARE, OTHER, MEDICAID | END 2023-08-09 12:41 | disposition home or self-care (01) | LOC: LAB 12:40 | PROVIDERS: ATTEND Internal Medicine | DX: E03.9 Hypothyroidism, unspecified (principal) | CPT/HCPCS: 36415; 84443 ==

== ENCOUNTER 2023-11-14 10:15 | Outpatient (CLI) | payer MEDICARE, OTHER, MEDICAID ==
--- NOTE | 2023-11-15 09:18 | Mammography Report ---
BILATERAL DIGITAL SCREENING MAMMOGRAM 3D/2D: 11/14/2023 CLINICAL: Routine screening. Comparison is made to exam dated: 01/23/2022 mammogram - [facility]. Both breasts are heterogeneously dense, which may obscure small masses (category c / 51-75% glandular tissue). No significant masses, calcifications, or other findings are seen in either breast. There has been no significant interval change. IMPRESSION: NEGATIVE There is no mammographic evidence of malignancy. A 1 year screening mammogram is recommended. Mobility restrictions limited positioning and evaluation. Based on the Tyrer Cuzick model (a risk assessment model) the patient's lifetime risk is 1.1% and her 10 year risk is 0.0%. According to the ACR, ACS, and NCCN guidelines, an annual breast MRI exam farhan g with mammogram is recommended if the patient's lifetime risk is 20% or greater. This exam was interpreted at Station ID: [id number]. NOTE: For mammograms, a report in lay terms will be sent to the patient. Approximately 15% of breast malignancies will not be visualized mammographically. In the management of a palpable breast mass, a negative mammogram must not discourage biopsy of a clinically suspicious lesion. Electronically Signed By: Frandy Tineo M.D. lc/:11/14/2023 11:46:23 letter sent: No_Letter ACR BI-RADS Category 1: Negative 3341F PARENCHYMAL PATTERN: (D) - The breast(s) demonstrate(s) heterogeneously dense fibroglandular galina isbell. BI-RADS CATEGORY: (1) - 1 RECOMMENDATION: (ANNUAL) - Recommend routine annual screening mammography. [id number] 1 year screening LATERALITY: (B)
== END 2023-11-14 10:16 | disposition home or self-care (01) ==
LOC: DI 10:15
DX: Z12.31 Encounter for screening mammogram for malignant neoplasm of breast (principal); R92.333 Mammographic heterogeneous density, bilateral breasts

== ENCOUNTER 2023-11-14 10:45 | Outpatient (CLI) | payer MEDICARE, OTHER, MEDICAID ==
--- NOTE | 2023-11-14 14:15 | XRAY Report ---
PROCEDURE: Chest 2V INDICATIONS: DYSPNEA TECHNIQUE: 2 views of the chest were acquired. COMPARISON: 12/23/2020 FINDINGS: Surgical changes and devices: None. Lungs and pleura: No pleural effusions or pneumothorax. Lungs are clear. Mediastinum: Mediastinal contours appear normal. Heart size is normal. Bones and chest wall: No suspicious bony lesions. Overlying soft tissues appear unremarkable. IMPRESSION: No acute cardiopulmonary process. Reviewed by: Vance Adams MD on 11/14/2023 2:13 PM PDT Approved by: Vance Adams MD on 11/14/2023 2:13 PM PDT Station ID: [id number]
== END 2023-11-14 10:46 | disposition home or self-care (01) ==
LOC: DI 10:45
PROVIDERS: ATTEND Internal Medicine
DX: R06.00 Dyspnea, unspecified (principal)

== ENCOUNTER 2023-12-04 11:03 | Outpatient (CLI) | payer MEDICARE, OTHER, MEDICAID ==
[2023-12-04] MEDS: ALBUTEROL 1 PUFF INH STA (12:38)
== END 2023-12-04 11:04 | disposition home or self-care (01) ==
LOC: RT 11:03
PROVIDERS: ATTEND Internal Medicine
DX: R06.00 Dyspnea, unspecified (principal)
CPT/HCPCS: 94060

== ENCOUNTER 2024-01-16 08:37 | Outpatient (CLI) | payer MEDICARE, OTHER, MEDICAID ==
[2024-01-16 08:56] LABS: BASOPHILS % (AUTO) 0.4 %; EOSINOPHILS # (AUTO) 0.2 10^3/uL (0.0-0.7); EOSINOPHILS % (AUTO) 2.9 %; HCT - HEMATOCRIT 45.3 % (37.0-47.0); HGB - HEMOGLOBIN 14.3 g/dL (12.0-16.0); LYMPHOCYTES % (AUTO) 27.3 %; MEAN CORPUSCULAR HEMOGLOBIN 30.8 pg (27.0-31.0); MEAN CORPUSCULAR HGB CONC 31.6 g/dL (32.0-36.0); MEAN CORPUSCULAR VOLUME 97.4 fL (81.0-99.0); MONOCYTES # (AUTO) 0.7 10^3/uL (0.0-1.0); MONOCYTES % (AUTO) 9.6 %; NEUTROPHILS # (AUTO) 4.3 10^3/uL (1.5-6.6); NEUTROPHILS % (AUTO) 59.2 %; PLT - PLATELET COUNT 242 10^3/uL (130-450); RED BLOOD COUNT 4.65 10^6/uL (4.20-5.40); RED CELL DISTRIBUTION WIDTH 12.9 % (12.0-15.0); WHITE BLOOD COUNT 7.2 x10^3/uL (4.8-10.8)
[2024-01-16 09:09] LABS: BUN - BLOOD UREA NITROGEN 19 mg/dL (6-20); CALCIUM 9.7 mg/dL (8.5-10.3); CARBON DIOXIDE - CO2 29 mmol/L (21-32); CHLORIDE 105 mmol/L (101-111); CREATININE 1.1 mg/dL (0.6-1.3); GFR - MDRD 48 (>89); GLUCOSE 105 mg/dL (74-104); POTASSIUM 4.9 mmol/L (3.5-4.5); SODIUM 141 mmol/L (135-145); VALPROIC ACID (DEPAKOTE) 31.4 ug/mL
[2024-01-16 11:04] LABS: ESTIMATED AVERAGE GLUCOSE 105 mg/dL (70-100); HEMOGLOBIN A1c% 5.3 % (4.27-6.07)
== END 2024-01-16 08:38 | disposition home or self-care (01) ==
LOC: LAB 08:37
PROVIDERS: ATTEND Registered Nurse
DX: F25.0 Schizoaffective disorder, bipolar type (principal)
CPT/HCPCS: 36415; 80048; 80164; 83036; 85025

== ENCOUNTER 2024-06-01 07:54 | Inpatient (IN) ==
--- NOTE | 2024-06-01 08:16 | ED Physician Documentation ---
PD HPI URI Stated complaint Stated Complaint: Cough, drainage Chief complaint Chief Complaint: Resp History obtained from History obtained from: Patient History of Present Illness Timing - onset: How many days ago (2-3) Timing duration: Days (2-3) Timing details: Gradual onset and Still present Associated symptoms: Nasal congestion, Productive cough and Dyspnea; No Fever, Chills, Hemoptysis, Chest pain or Bilateral edema Contributing factors: COPD / asthma; No Unimmunized Improves by: Rest Worsened by: Activity Similar symptoms before: Diagnosis (similar to prior bronchitis episodes.) Treatment prior to arrival Treatment prior to arrival: using MDIs at home. Exam Constitutional normal general appearance HENMT normocephalic Lymph no lymphadenopathy noted Chest palpation of chest normal and inspection of breasts normal (wheezing generally, worse on right. No coarse sounds nor fine crackles.) Respiratory breath sounds equal bilaterally, normal respiratory effort, auscultation abnormal, wheezing noted (expiratory wheezes) and no use of accessory muscles Cardiovascular normal heart rate noted, regular rhythm noted and no edema (minimal edema both ankles/lower legs.) Results Vitals Vitals: Vital Signs - 24 hr 06/01/24 08:18 06/01/24 09:11 06/01/24 10:30 Temperature 37.0 C Temperature Source Temporal Artery Scan Pulse Rate 89 85 82 Pulse Rate [Brachial] Respiratory Rate 18 22 20 Blood Pressure 116/75 117/92 H Blood Pressure [Left Brachial artery] O2 Saturation 91 L 86 L O2 Source Room air Room air If not protocol: Oxygen Flow, liters/minute Sedation scale Pain Intensity 0 0 06/01/24 11:07 06/01/24 11:20 06/01/24 12:17 Temperature 37.1 C Temperature Source Temporal Artery Scan Pulse Rate 84 90 Pulse Rate [Brachial] Respiratory Rate 20 20 Blood Pressure 123/96 H Blood Pressure [Left Brachial artery] O2 Saturation 92 90 L O2 Source Nasal cannula Nasal cannula If not protocol: Oxygen Flow, liters/minute 2 2 Sedation scale Pain Intensity 0 0 06/01/24 13:46 Temperature 3.7 C L Temperature Source Temporal Artery Scan Pulse Rate Pulse Rate [Brachial] 97 H Respiratory Rate 20 Blood Pressure Blood Pressure [Left Brachial artery] 140/76 H O2 Saturation 93 O2 Source Nasal cannula If not protocol: Oxygen Flow, liters/minute 2 Sedation scale 0-Fully awake Pain Intensity Oxygen O2 Source Nasal cannula Labs Labs: Laboratory Tests 06/01/24 06/01/24 08:55 11:13 WBC 8.9 RBC 4.14 L Hgb 13.1 Hct 41.2 MCV 99.5 H MCH 31.6 H MCHC 31.8 L RDW 13.4 Plt Count 217 MPV 10.7 Neut # (Auto) Not Reportable Lymph # (Auto) Not Reportable [place] # (Auto) Not Reportable Eos # (Auto) Not Reportable Baso # (Auto) Not Reportable Absolute Nucleated RBC Not Reportable Total Counted 100 Band Neuts % (Manual) 0 Reactive Lymphs % (Man) 3 Abnorm Lymph % (Manual) 0 Myelocytes % 1 H Nucleated RBC % Not Reportable Neutrophils # (Manual) 6.9 H Lymphocytes # (Manual) 1.1 L Monocytes # (Manual) 0.7 Eosinophils # (Manual) 0.1 Basophils # (Manual) 0.0 Differential Comment MANUAL DIFFERENTIAL RBC Morph Micro Appear 2+ ANISOCYTOSIS Sodium 141 Potassium 4.5 Chloride 106 Carbon Dioxide 29 Anion Gap 6.0 BUN 14 Creatinine 0.9 Estimated GFR (MDRD) 60 L Glucose 118 H Calcium 9.2 Magnesium 2.1 Total Bilirubin 0.3 AST 25 ALT 22 Alkaline Phosphatase 54 Total Protein 6.2 L Albumin 3.9 Globulin 2.3 Albumin/Globulin Ratio 1.7 Lipase 23 Nasal Adenovirus (PCR) NOT DETECTED Nasal B. parapertussis DNA (PCR) NOT DETECTED Nasal Coronavir 229E PCR NOT DETECTED Nasal Coronavir HKU1 PCR NOT DETECTED Nasal Coronavir NL63 PCR NOT DETECTED Nasal Coronavir OC43 PCR NOT DETECTED Nasal Enterovir/Rhinovir PCR NOT DETECTED Nasal Influenza B PCR NOT DETECTED Nasal Influenza A PCR NOT DETECTED Nasal Parainfluen 1 PCR NOT DETECTED Nasal Parainfluen 2 PCR NOT DETECTED Nasal Parainfluen 3 PCR NOT DETECTED Nasal Parainfluen 4 PCR NOT DETECTED Nasal RSV (PCR) NOT DETECTED Nasal B.pertussis DNA PCR NOT DETECTED Nasal C.pneumoniae (PCR) NOT DETECTED Diego Human Metapneumo PCR NOT DETECTED Nasal M.pneumoniae (PCR) NOT DETECTED Nasal SARS-CoV-2 (PCR) NOT DETECTED Rads (name of study) chest xray: Relevant Findings:: Prelim report reviewed and EMP independent interp retation of test PD Medical Decision Making ED course Complexity details: reviewed results and considered differential (Patient with COPD with cough for 2 to 3 days. Denies fever or chills. Consider viral causes and will do a respiratory panel. Consider pneumonia and get chest x-ray. Given nebulizer here.) Reviewed Lab Results: Basic cbc and cheistry are okay. CXR mithout infiltrats. ED course: cough for several days increasing, causing wheezing and dyspnea. No orthopnea. sats are 86-88% on trige and not much better after nebs x 2. Placed on NC 2-3 lpm whcich afforts a regular sats at 95-96% [facility] Medical History Medical History (Updated 06/01/24 @ 20:34 by ANUPAM MoralesN, RN) COPD (chronic obstructive pulmonary disease) Social History Social History Smoking Status: Former smoker If you are a former smoker, when did you quit? (Date/Year): 1993 Do you dip or chew tobacco?: No Do you vape?: No Relationship: Level: Independent Do you feel safe in your home environment?: No Suffered physical, verbal, emotional, or financial abuse?: No History of Abuse: No Frequency: Occasional Substance Use: denies use Discharge Plan Discharge Patient Disposition: [facility] DC/Xfer Condition: Stable Clinical Impression: Bronchitis, Moderate COPD (chronic obstructive pulmonary disease), Dyspnea Interventions: ED Admission Assessment Last Done: 06/01/24 14:25
[2024-06-01] MEDS: dexAMETHasone 4 MG TABLET PO STA (08:50)
--- NOTE | 2024-06-01 09:08 | XRAY Report ---
PROCEDURE: XR Chest 1V INDICATIONS: cough/duyspnea/COPD TECHNIQUE: One view of the chest was acquired. COMPARISON: None. FINDINGS: Surgical changes and devices: None. Lungs and pleura: No pleural effusions or pneumothorax. Lungs are clear. Mediastinum: Mediastinal contours appear normal. Heart size is normal. Bones and chest wall: No suspicious bony lesions. Overlying soft tissues appear unremarkable. IMPRESSION: No acute cardiopulmonary process. Reviewed by: Toby Rascon MD on 06/01/2024 9:07 AM PDT Approved by: Toby Rascon MD on 06/01/2024 9:07 AM PDT Station ID: [id number]
[2024-06-01] MEDS: IPRATROPIUM/ALBUTEROL 3 ML NEB INH STA (09:09)
[2024-06-01 10:00] LABS: B. PARAPERTUSSIS- RESP PCR PAN NOT DETECTED; B. PERTUSSIS- RESP PCR PANEL NOT DETECTED; C. PNEUMONIAE- RESP PCR PANEL NOT DETECTED; CORONAVIRUS 229E-RESP PCR NOT DETECTED; CORONAVIRUS HKU1-RESP PCR NOT DETECTED; CORONAVIRUS NL63-RESP PCR NOT DETECTED; CORONAVIRUS OC43-RESP PCR NOT DETECTED; HUMAN METAPNEUMOVIRUS NOT DETECTED; INFLUENZA A- RESP PCR PANEL NOT DETECTED; INFLUENZA B - RESP PCR PANEL NOT DETECTED; M. PNEUMONIAE- RESP PCR PANEL NOT DETECTED; PARAINFLUENZA VIRUS 1 NOT DETECTED; PARAINFLUENZA VIRUS 2 NOT DETECTED; PARAINFLUENZA VIRUS 3 NOT DETECTED; PARAINFLUENZA VIRUS 4 NOT DETECTED; RHINOVIRUS/ENTEROVIRUS NOT DETECTED; RSV- RESP PCR PANEL NOT DETECTED; SARS-CoV-2 -RESP PCR PANEL NOT DETECTED
[2024-06-01] MEDS: ALBUTEROL NEB 2.5 MG/3 ML INH STA (11:19)
[2024-06-01 11:21] LABS: BASOPHILS % (AUTO) 0.3 %; HCT - HEMATOCRIT 41.2 % (37.0-47.0); HGB - HEMOGLOBIN 13.1 g/dL (12.0-16.0); LYMPHOCYTES % (AUTO) 8.1 %; MEAN CORPUSCULAR HEMOGLOBIN 31.6 pg (27.0-31.0); MEAN CORPUSCULAR HGB CONC 31.8 g/dL (32.0-36.0); MEAN CORPUSCULAR VOLUME 99.5 fL (81.0-99.0); MEAN PLATELET VOLUME 10.7 fL (7.9-10.8); MONOCYTES % (AUTO) 6.1 %; NEUTROPHILS % (AUTO) 82.8 %; PLT - PLATELET COUNT 217 10^3/uL (130-450); RED BLOOD COUNT 4.14 10^6/uL (4.20-5.40); RED CELL DISTRIBUTION WIDTH 13.4 % (12.0-15.0); WHITE BLOOD COUNT 8.9 x10^3/uL (4.8-10.8)
[2024-06-01 11:30] LABS: ABNORMAL LYMPHS % (MANUAL) 0 %; BAND NEUTROPHILS % (MANUAL) 0 %; MAGNESIUM 2.1 mg/dL (1.7-2.3)
[2024-06-01] MEDS: cefTRIAXone 1 GM VIAL IVP STA (11:34)
[2024-06-01] MEDS: AZITHROMYCIN 250 MG TABLET PO STA (11:35)
[2024-06-01 11:36] LABS: ALBUMIN 3.9 g/dL (3.2-5.5); ALBUMIN/GLOBULIN RATIO 1.7 (1.0-2.2); BILIRUBIN,TOTAL 0.3 mg/dL (0.2-1.0); CALCIUM 9.2 mg/dL (8.5-10.3); CREATININE 0.9 mg/dL (0.6-1.3); POTASSIUM 4.5 mmol/L (3.5-4.5); TOTAL PROTEIN 6.2 g/dL (6.4-8.9)
[2024-06-01 12:22] LABS: EOSINOPHILS # (MANUAL) 0.1 10^3/uL (0-0.7); LYMPHOCYTES # (MANUAL) 1.1 10^3/uL (1.5-3.5); LYMPHOCYTES % (MANUAL) 9 %; MONOCYTES # (MANUAL) 0.7 10^3/uL (0.0-1.0); MYELOCYTES % (MANUAL) 1 %; NEUTROPHILS # (MANUAL) 6.9 10^3/uL (1.5-6.6); REACTIVE LYMPHS % (MANUAL) 3 %
[2024-06-01 12:23] LABS: DIFFERENTIAL COMMENT MANUAL DIFFERENTIAL; RBC MORPHOLOGY (MULTIPLE) 2+ ANISOCYTOSIS (NORMAL)
--- NOTE | 2024-06-01 12:24 | HISTORY & PHYSICAL EXAMINATION ---
Chief Complaint Chief Complaint Chief Complaint: Shortness of breath History of Present Illness Admitted From Admitted From:: ED History Obtained From History obtained from: Patient and chart review History of Present Illness HPI Comment/Other: 83-year-old female with past medical history significant for COPD not on room airWho is on antibiotics for UTIPresents to the ER with complaints of cough, dyspnea. She says this has been gradually worsening over the past 3 days. She denies productive cough, fever, chills, chest pain. In the ER, chest x-ray was performed which was negative for any acute abnormalities. Respiratory viral panel was negative. Patient was given Decadron and Rocephin/azithromycin and hospitalist was contacted for admission Meds/Allgy Home Medications Ambulatory Orders Medication Instructions Recorded Confirmed albuterol sulfate 90 mcg/actuation 2 puff inhalation Q4HR PRN Wheezing 12/23/20 06/14/23 aerosol inhaler (Ventolin HFA) ipratropium bromide 0.02 % 2 puff inhalation QID 12/23/20 06/14/23 solution for inhalation levothyroxine 50 mcg tablet 50 mcg PO DAILY 12/23/20 06/14/23 (Synthroid) montelukast 10 mg tablet 10 mg PO DAILY 12/23/20 06/14/23 olanzapine 10 mg tablet (Zyprexa) 10 mg PO QPM 12/23/20 07/18/21 olanzapine 20 mg tablet (Zyprexa) 20 mg PO DAILY 12/23/20 06/14/23 sertraline 50 mg tablet 50 mg PO DAILY 12/23/20 06/14/23 nitrofurantoin 100 mg PO BID #10 caps 07/18/21 monohydrate/macrocrystals 100 mg capsule quetiapine 100 mg tablet 100 mg PO QPM 07/18/21 06/14/23 Allergies Allergies Allergy/AdvReac Type Severity Reaction Status Date / Time Penicillins Allergy Respiratory Verified 06/01/24 08:25 Sulfa (Sulfonamide Allergy Hives Verified 06/01/24 08:25 Antibiotics) FOR[facility]LY [facility], [facility] Medical History Medical History (Updated 06/01/24 @ 12:21 by Jonathan Stafford DNP) COPD (chronic obstructive pulmonary disease) Social History Social History Smoking Status: Never smoker Relationship: Do you feel safe in your home environment?: Yes Suffered physical, verbal, emotional, or financial abuse?: No History of Abuse: No Frequency: Occasional Review of Systems Status of ROS: 10 or more systems reviewed and unremarkable except as noted in history and below Constitutional Denies: Fever or Chills Cardiovascular Reports: shortness of breath with exertion; Denies: Irregular heart rate or Syncope Respiratory Reports: Shortness of breath and Cough; Denies: Sputum production Gastrointestinal Denies: Abdominal pain Genitourinary Reports: Painful urination Conclusion/Plan Problem List (1) COPD exacerbation: Plan: Admit Prednisone burst Azithromycin Continue home inhaler regimen (2) UTI (urinary tract infection): Plan: Check UA UTI is per patient report Will go ahead and cover with Rocephin Qualifiers: Hematuria presence: without hematuria Urinary tract infection type: a cute cystitis Qualified Code(s): N30.00 - Acute cystitis without hematuria (3) Acute and chronic respiratory failure with hypoxia: Plan: Manage COPD as above O2 as needed RT consult Plan Will place an inpatient for acute on chronic respiratory failure with hypoxia requiring 4 L oxygen at time of my interview. Will place her on steroid burst and antibiotics that will cover community-acquired pneumonia as well as UTI Patient wishes to be full code, and reports that her stepdaughter is her DPOA Lab Results Lab results reviewed: Yes 06/01/24 11:13 06/01/24 11:13 Diagnostic Imaging Results Diagnostic Imaging Results: positive Final report reviewed Diagnostic Imaging Results Comments: CXR no acute abnormalities Core Measures Anticipated LOS I expect patient to be DC'd or transferred within 96 hours.: Yes DVT/VTE - Prophylaxis VTE/DVT Device ordered at admit?: No VTE/DVT Prophylaxis med ordered at admit?: Yes Exam Constitutional normal general appearance Obese elderly female Respiratory breath sounds equal bilaterally Diminished breath sounds Cardiovascular normal heart rate noted, regular rhythm noted and murmur noted (systolic) Gastrointestinal abdomen normal to inspection Extremities normal to inspection and no tenderness Skin skin color normal
[2024-06-01] MEDS ORDERED: ONDANSETRON 4 MG/2 ML VIAL IVP PRN (14:22)
[2024-06-01] MEDS ORDERED: SODIUM CHLORIDE FLUSH 0.9% 10 ML SYRINGE IVP PRN (14:22)
[2024-06-01] MEDS ORDERED: ONDANSETRON ODT 4 MG TABLET TL PRN (14:22)
[2024-06-01 16:18] LABS: BILIRUBIN,URINE NEGATIVE (NEGATIVE); GLUCOSE, URINE (UA) NEGATIVE (NEGATIVE); KETONES,URINE (UA) NEGATIVE (NEGATIVE); LEUKOCYTE ESTERASE, URINE NEGATIVE (NEGATIVE); NITRITE,URINE NEGATIVE (NEGATIVE); OCCULT BLOOD,URINE NEGATIVE (NEGATIVE); PROTEIN,URINE NEGATIVE (NEGATIVE); UROBILINOGEN,URINE 0.2 (NORMAL) E.U./dL (NORMAL)
[2024-06-01 16:20] LABS: CLARITY,URINE CLEAR (CLEAR)
[2024-06-01 16:25] LABS: BACTERIA,URINE Few /HPF (None Seen); RBC,URINE 0-5 /HPF (0-5); SQUAMOUS EPITHELIAL CELL,UR MOD Squamous (<= Few); WBC,URINE 0-3 /HPF (0-5)
[2024-06-01] MEDS: IPRATROPIUM 0.2 MG/ML NEB INH SCH ×2 (16:27→19:42)
[2024-06-01] MEDS: ALBUTEROL NEB 2.5 MG/3 ML INH PRN (16:31)
[2024-06-01] MEDS: SODIUM CHLORIDE FLUSH 0.9% 10 ML SYRINGE IVP SCH (16:48)
--- NOTE | 2024-06-01 17:37 | PHARMACY PROGRESS NOTE ---
Best Possible Medication History Admit Date and Time: 06/01/24 1422 Processed by: Pharmacy Medications reviewed in ED?: Yes Medication History completed: Yes Patient Interview: Completed Secondary Source(s): Pharmacy records and Insurance records [facility] Statement: As the person ultimately responsible for medication therapy, providers are able to order a medication from an existing home medication list in [facility] via the "Reconcile Routine" prior to Confirmation of that medication by direct support staff. Such practice is discouraged except when the physician, in their clinical judgment, deems that a medical need exists for a medication without regard to previous use.
[2024-06-01] MEDS ORDERED: NON FORMULARY MED (Fluticasone-Umeclidin-Vilanter [Trelegy Ellipta] 100-62.5-25 mcg bliste INH SCH (18:00)
[2024-06-01] MEDS ORDERED: IPRATROPIUM/ALBUTEROL 3 ML NEB INH ONE (19:44)
[2024-06-01] MEDS: IPRATROPIUM/ALBUTEROL 3 ML NEB INH SCH (19:50)
[2024-06-01] MEDS: FORMOTEROL FUMARATE NEB 20 MCG/2 ML INH SCH (19:50)
[2024-06-01] MEDS: BUDESONIDE 0.5 MG/2 ML NEB INH SCH (19:50)
[2024-06-01] MEDS: SENNA 8.6 MG TABLET PO SCH (20:41)
[2024-06-01] MEDS: DIVALPROEX DR 125 MG TABLET PO SCH (20:41)
[2024-06-01] MEDS: OLANZapine ODT 5 MG TABLET TL SCH (20:41)
[2024-06-01] MEDS: DOCUSATE SODIUM 100 MG CAPSULE PO SCH (20:41)
[2024-06-01] MEDS: QUEtiapine 100 MG TABLET PO SCH (20:41)
[2024-06-02 06:01] LABS: BASOPHILS % (AUTO) 0.4 %; EOSINOPHILS # (AUTO) 0.1 10^3/uL (0.0-0.7); EOSINOPHILS % (AUTO) 1.6 %; HCT - HEMATOCRIT 37.5 % (37.0-47.0); HGB - HEMOGLOBIN 11.9 g/dL (12.0-16.0); LYMPHOCYTES # (AUTO) 1.8 10^3/uL (1.5-3.5); MEAN CORPUSCULAR HEMOGLOBIN 31.1 pg (27.0-31.0); MEAN CORPUSCULAR HGB CONC 31.7 g/dL (32.0-36.0); MEAN CORPUSCULAR VOLUME 97.9 fL (81.0-99.0); MEAN PLATELET VOLUME 10.3 fL (7.9-10.8); MONOCYTES # (AUTO) 0.8 10^3/uL (0.0-1.0); MONOCYTES % (AUTO) 11.1 %; NEUTROPHILS # (AUTO) 4.7 10^3/uL (1.5-6.6); NEUTROPHILS % (AUTO) 62.5 %; PLT - PLATELET COUNT 214 10^3/uL (130-450); RED BLOOD COUNT 3.83 10^6/uL (4.20-5.40); RED CELL DISTRIBUTION WIDTH 13.4 % (12.0-15.0); WHITE BLOOD COUNT 7.6 x10^3/uL (4.8-10.8)
[2024-06-02] MEDS: LEVOTHYROXINE 75 MCG TABLET PO SCH (06:01)
[2024-06-02 06:19] LABS: CALCIUM 9.1 mg/dL (8.5-10.3); CREATININE 0.9 mg/dL (0.6-1.3); POTASSIUM 3.7 mmol/L (3.5-4.5)
[2024-06-02] MEDS: ENOXAPARIN 40 MG/0.4 ML SYRINGE SUBQ SCH (08:37)
[2024-06-02] MEDS: DIVALPROEX DR 250 MG TABLET PO SCH (08:37)
[2024-06-02] MEDS: AZITHROMYCIN 250 MG TABLET PO SCH (08:38)
[2024-06-02] MEDS: ASCORBIC ACID 500 MG TABLET PO SCH (08:38)
[2024-06-02] MEDS: OLANZapine ODT 5 MG TABLET TL SCH (08:38)
[2024-06-02] MEDS: QUEtiapine 100 MG TABLET PO SCH (08:39)
[2024-06-02] MEDS: LEVOTHYROXINE 25 MCG TABLET PO SCH (08:39)
[2024-06-02] MEDS: MONTELUKAST 10 MG TABLET PO SCH (08:39)
[2024-06-02] MEDS: predniSONE 20 MG TABLET PO SCH (08:39)
[2024-06-02] MEDS: cefTRIAXone 1 GM in SODIUM CHLORIDE 0.9% MINIBAG 100 ML IV SCH (08:53)
[2024-06-02] MEDS ORDERED: SERTRALINE 50 MG TABLET PO SCH (09:00)
--- NOTE | 2024-06-02 15:47 | PROVIDER PROGRESS NOTE ---
Subjective Prog Note Date Prog Note Date: 06/02/24 Prog Note Time: 15:45 Subjective Pt reports feeling: Improved Subjective: Pleasant elderly female, morbidly obese. Seen this morning on her own at approximately 9 AM. At that I saw her again at approximately 1 PM with her 2 stepdaughters in the room. I did advance care planning conversation with the 2 stepdaughters and the patient. Please see separate dictation from today. She feels like she is less short of breath. Daughter describes her as immobile due to dyspnea on exertion as well as obesity. Been gradually getting worse over the last few months. Patient is usually sitting or laying down. It was alarming to see her mom be so short of breath was just conversation or trying to move around in bed. She denies cough, chest pain. No abdominal pain. No leg pain. Review of vital signs show her to be stable. Without fever. Oxygen requirement has come down from yesterday. She was on 4 L nasal cannula to maintain O2 sats. Today she is on 2 L nasal cannula. Current Medications Current Medications Current Medications: Current Medications Generic Name Dose Route Start Last Admin Trade Name Freq PRN Reason Stop Dose Admin Albuterol 2.5 mg 06/01/24 12:19 06/01/24 16:31 Albuterol Neb 2.5 Mg/3 Ml INH 2.5 mg RTQ4H PRN Administration Wheezing Albuterol/Ipratropium 3 ml 06/01/24 19:00 06/02/24 15:40 Ipratropium/Albuterol 3 Ml Neb INH 3 ml RTQID KINJAL Administration Ascorbic Acid 500 mg 06/02/24 09:00 06/02/24 08:38 Ascorbic Acid 500 Mg Tablet PO 500 mg DAILY KINJAL Administration Azithromycin 500 mg 06/02/24 09:00 06/02/24 08:38 Azithromycin 250 Mg Tablet PO 06/03/24 09:01 500 mg DAILY KINJAL Administration Budesonide 0.5 mg 06/01/24 19:00 06/02/24 07:27 Budesonide 0.5 Mg/2 Ml Neb INH 0.5 mg RTBID KINJAL Administration Divalproex Sodium 250 mg 06/02/24 09:00 06/02/24 08:[address] 250 Mg Tablet PO 250 mg DAILY KINJAL Administration Divalproex Sodium 125 mg 06/01/24 20:00 06/02/24 14:[address] 125 Mg Tablet PO 125 mg 1400,1999 KINJAL Administration Docusate Sodium 200 mg 06/01/24 21:00 06/02/24 08:38 Docusate Sodium 100 Mg Capsule PO 200 mg BID KINJAL Administration Enoxaparin Sodium 40 mg 06/02/24 09:00 06/02/24 08:37 Enoxaparin 40 Mg/0.4 Ml Syringe SUBQ 40 mg DAILY KINJAL Administration Formoterol Fumarate 20 mcg 06/01/24 19:00 06/02/24 07:27 Formoterol Fumarate Neb 20 Mcg/2 Ml INH 20 mcg RTBID KINJAL Administration Ceftriaxone Sodium 1 gm/ 100 mls @ 200 mls/hr 06/02/24 09:00 06/02/24 09:30 Sodium Chloride IV 06/06/24 08:59 Infused DAILY KINJAL Infusion Levothyroxine Sodium 50 mcg 06/02/24 09:00 06/02/24 08:39 Levothyroxine 25 Mcg Tablet PO 50 mcg DAILY KINJAL Administration Levothyroxine Sodium 75 mcg 06/02/24 07:00 06/02/24 06:01 Levothyroxine 75 Mcg Tablet PO 75 mcg 0700 KINJAL Administration Montelukast Sodium 10 mg 06/02/24 09:00 06/02/24 08:39 Montelukast 10 Mg Tablet PO 10 mg DAILY KINJAL Administration Olanzapine 10 mg 06/01/24 21:00 06/01/24 20:41 Olanzapine Odt 5 Mg Tablet TL 10 mg QPM KINJAL Administration Olanzapine 20 mg 06/02/24 09:00 06/02/24 08:38 Olanzapine Odt 5 Mg Tablet TL 20 mg DAILY KINJAL Administration Ondansetron HCl 4 mg 06/01/24 14:22 Ondansetron 4 Mg/2 Ml Vial IVP Q6HR PRN Nausea / Vomiting Ondansetron HCl 4 mg 06/01/24 14:22 Ondansetron Odt 4 Mg Tablet TL Q6HR PRN Nausea / Vomiting Prednisone 40 mg 06/02/24 09:00 06/02/24 08:39 Prednisone 20 Mg Tablet PO 06/05/24 09:01 40 mg DAILY KINJAL Administration Quetiapine Fumarate 300 mg 06/01/24 21:00 06/01/24 20:41 Quetiapine 100 Mg Tablet PO 300 mg QPM KINJAL Administration Quetiapine Fumarate 100 mg 06/02/24 09:00 06/02/24 08:39 Quetiapine 100 Mg Tablet PO 100 mg DAILY KINJAL Administration Senna 8.6 mg 06/01/24 21:00 06/02/24 08:39 Senna 8.6 Mg Tablet PO 8.6 mg BID KINJAL Administration Sodium Chloride 10 ml 06/01/24 14:22 Sodium Chloride Flush 0.9% 10 Ml Syringe IVP PRN PRN NEEDED PER PROVIDER ORDERS Sodium Chloride 10 ml 06/01/24 17:00 06/02/24 08:54 Sodium Chloride Flush 0.9% 10 Ml Syringe IVP 10 ml 0100,0900,1700 KINJAL Administration Objective Vital Signs/Intake & Output Reviewed Vital Signs: Yes Vital Signs: Vital Signs x48h Pulse Pulse Resp Pulse Ox O2 Flow Rate 06/02/24 15:41 82 20 5 06/02/24 14:36 83 20 90 L 3 06/02/24 11:11 80 20 2 Intake & Output: Intake & Output 05/31/24 06/01/24 06/02/24 06/03/24 05:59 05:59 05:59 05:59 Intake Total 907 / 907 1460 / 1460 Output Total 1950 / 1950 500 / 500 Balance -1043 / -1043 960 / 960 Weight (kg) 101.5 kg Objective General Appearance: positive No acute distress, Alert and Other (Morbidly obese female at 101.5 kg, comfortable sitting upright in a chair, watching TV, and feeding herself) Neck: negative No JVD, Lymphadenopathy (L), Stiff neck or Carotid bruit Respiratory: positive No respiratory distress and Other (Very diminished breath sounds at the bases, able to take a deep breath and I can hear normal sounds and midlung and upper lungs without crackles, rhonchi or wheezing) Cardiovascular: positive Regular rate & rhythm Abdomen: positive Non-tender, Nml bowel sounds, No distention and Other (Large protuberant obese pannus) Skin: positive No rash, Warm, Dry and Pallor Extremities: positive Full ROM and Pedal edema Neurologic/Psychiatric: positive CN's nml (2-12), Motor nml (Other than generalized weakness where she struggles to get out of bed to sit, and then go stand with a pivot to the chair. She is able to do it with to standby assist and a walker), Disoriented to place and Disoriented to time Lab Results 06/02/24 05:38 06/02/24 05:38 Other Labs: Lab Results x24hrs 06/02/24 06/01/24 Range/Units 05:38 16:00 WBC 7.6 (4.8-10.8) x10^3/uL RBC 3.83 L (4.20-5.40) 10^6/uL Hgb 11.9 L (12.0-16.0) g/dL Hct 37.5 (37.0-47.0) % MCV 97.9 (81.0-99.0) fL MCH 31.1 H (27.0-31.0) pg MCHC 31.7 L (32.0-36.0) g/dL RDW 13.4 (12.0-15.0) % Plt Count 214 (130-450) 10^3/uL MPV 10.3 (7.9-10.8) fL Neut # (Auto) 4.7 (1.5-6.6) 10^3/uL Lymph # (Auto) 1.8 (1.5-3.5) 10^3/uL [place] # (Auto) 0.8 (0.0-1.0) 10^3/uL Eos # (Auto) 0.1 (0.0-0.7) 10^3/uL Baso # (Auto) 0.0 (0.0-0.1) 10^3/uL Absolute Nucleated RBC 0.00 x10^3/uL Nucleated RBC % 0.0 /100WBC Sodium 140 (135-145) mmol/L Potassium 3.7 (3.5-4.5) mmol/L Chloride 104 (101-111) mmol/L Carbon Dioxide 30 (21-32) mmol/L Anion Gap 6.0 (6-13) BUN 17 (6-20) mg/dL Creatinine 0.9 (0.6-1.3) mg/dL Estimated GFR (MDRD) 60 L (>89) Glucose 102 (74-104) mg/dL Calcium 9.1 (8.5-10.3) mg/dL Urine Color YELLOW Urine Clarity CLEAR (CLEAR) Urine pH 7.0 (5.0-7.5) PH Ur Specific [place] 1.015 (1.002-1.030) Urine Protein NEGATIVE (NEGATIVE) mg/dL Urine Glucose (UA) NEGATIVE (NEGATIVE) mg/dL Urine Ketones NEGATIVE (NEGATIVE) mg/dL Urine Occult Blood NEGATIVE (NEGATIVE) Urine Nitrite NEGATIVE (NEGATIVE) Urine Bilirubin NEGATIVE (NEGATIVE) Urine Urobilinogen 0.2 (NORMAL) (NORMAL) E.U./dL Ur Leukocyte Esterase NEGATIVE (NEGATIVE) Urine RBC 0-5 (0-5) /HPF Urine WBC 0-3 (0-5) /HPF Ur Squamous Epith Cells MOD Squamous H (<= Few) Urine Bacteria Few (None Seen) /HPF ABX Reporting Has patient been on IV antibiotics over the past 48 hours?: Yes Assessment/Plan Problem List (1) Acute and chronic respiratory failure with hypoxia: Impression: Is day #2 for an elderly obese female who lives at a [facility] facility due to memory loss, bipolar disorder, and schizophrenia. Please see advance care planning conversation dictated under separate note from today. She presents as a progressive cough and shortness of breath in a patient with known COPD. The chest x-ray in the ER does not show pneumonia or congestive heart failure. However she is hypoxic which is a new finding for her. She is usually not on oxygen at her [facility] facility. I called treatment here has been albuterol every 4 hours as needed, formoterol twice a day, singular 10 mg a day, prednisone 40 mg p.o. starting today after being on Solu-Medrol for 1 dose in the ER. She was on DuoNeb yesterday. Today it is just albuterol.On 4 L oxygen yesterday, she is on 2 L oxygen this morning. Plan: Continue current medication. That prednisone was only to be for 4 days. Today is day #2. When she gets to room air and her O2 sat is greater than 89%, she can be discharged to her [facility] facility. (2) COPD exacerbation: Impression: As above. (3) UTI (urinary tract infection): Impression: She has chronic urinary retention reported by the nursing. I will be writing a as needed order for straight cath if she retains more than 150 cc of urine every shift. Currently on antibiotics. No culture submitted. UA was possibly with infection. Qualifiers: Hematuria presence: without hematuria Urinary tract infection type: a cute cystitis Qualified Code(s): N30.00 - Acute cystitis without hematuria (4) Schizophrenia: Impression: Long-term problem per the daughters. They said that she was only to their dad for 2 years before he . But they feel responsible for her. She does have a son who is no longer involved in her life. She is currently at a [facility] facility. They want to make sure she is on her medications and I confirmed that she is on Zyprexa. (5) Decreased mobility and endurance: Impression: Daughter feels that her mom is at baseline. Nursing confirms the patient is able to transition from supine to sitting, sitting to standing with shortness of breath on exertion. At this time we will not order PT or OT
--- NOTE | 2024-06-02 16:18 | ADVANCE CARE PLANNING NOTE ---
Advance Care Planning Planning Encounter Date: 06/02/24 Time: 13:00 Purpose: Establish CODE STATUS and care goals Parties in Attendance: The patient, and her 2 stepdaughters. Daughter Isabelle is her DPOA. Decisional Capacity of the Patient: While patient is lucid, conversant, able to carry conversation she thinks that her is alive (he has been for decades) and that she is an agent of homeland security that "takes people out for the government" Diagnosis for Encounter (1) Schizophrenia: Summary: Patient has been before. With first had 1 son. Not in contact with that son. 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 Stepdaughter is now DPOA because of this. Encounter Subjective/Patient's Story: Patient states that she was born and raised in [facility]. Had a first marriage and is vague about why there was a divorce. But she did have 1 child with that marriage. When she remarried a second time, it was described as a marriage of convenience. Her elderly needed help at home. And she needed a stability and roof over her head. When she went into that marriage, the stepdaughter describes mom as already having mental illness. Longstanding duration. She will go on and off her medications. Has been in inpatient psych facilities a few times in her life. Her after 2 to 3 years of marriage. She remained in the home in [place]. Initially neighbors called the police. The patient was having delusions and paranoia. She had voluntarily cut off her own electricity. Had been living in the dark and without water for several days if not weeks when the police arrived. After being taken in for evaluation, Adult Protective Services saw the patient within a day and felt that she was a grave danger for self-neglect. Shelbie had become her DPOA. And she was placed in a facility in [place] for close to 20 years. From [place] she was transferred to a facility in [place]. And from [place] she was transferred here to [facility] since her DPOA and stepdaughter lives [address]. She has been living at [facility] for over a year. Shelbie has done a lot of work with regards to stabilizing mom's care. For instance she was able to obtain guardianship relatively early in this process over 20 years ago. When mom was still more lucid and less paranoid and less delusional, long conversations were had and there is a living well as well as the DPOA. The daughter provides me with copies of both of those things. He states that the son was contacted. And he says he does not want to have anything to do with his mom since she tried to kill him when he was 12 years old. She describes mom's deterioration with regards to memory and mobility. While the delusional thought process and paranoid thought process was always a part of her personality, memory loss has been an added component of the last few years. For instance, the patient still insists today that her is alive. And living at their winter home in [facility]. She cannot explain to me why she is living in a memory care unit and that her is living separate from her. She says that she will be getting out of the memory care unit soon, once she "gets her feet underneath her". She does not seem to realize that she has been in a care facility for over 20 years. She does not know what day it is. And she does not know the date. She knows that she is in a medical facility but not that it is [facility]. She does recognize both of her stepdaughters and names them for me. Regards to mobility she is moving less and less. Daughter says that mom really loves to eat and has become quite obese over the last 3 to 4 years. The fact that she takes antipsychotics probably does not help. With that obesity, came an increased diminished ability to get out of a chair on her own. Patient prefers to be in a chair or in bed and needs a walker to walk with. She does feed herself. But she needs help from the [facility] to dress herself, bathe herself, or toilet. In discussing CODE STATUS, she does not remember signing a living will where she wanted to be DO NOT RESUSCITATE. And she gets upset at the idea that she may eventually. Objective/Medical Story: Elderly obese female who lives in a shelter facility and presents as increasing cough and shortness of breath. Had wheezing on exam. Negative chest x-ray. She has been treated as acute COPD exacerbation. Consequently she has acute respiratory failure with hypoxia. Slowly responding to steroids, empiric antibiotic therapy, and inhaled nebulizers. She needs a two-person assist to get out of bed and to get in a chair at the side of the bed. But she is able to ambulate with to standby assist to the bathroom or bedside commode for urination. Follows commands. Operative. Alert. Goals of Care: At this time, both daughters state that their goals with regards to their stepmom is to keep her safe, warm, comfortable. Did not be in pain or emotional distress. They do want her treated for pneumonia, infection, anemia, etc. They would even consider surgery, they do not want her resuscitated if she were to have a pulse or pressure. Plan: 1. I have copied the Living Will and given it to the SOLAR INSTALLER to scan and placed in the electronic medical record 2. I have filled out a POLST form with the DPOA as the contact officer. If she does not have a pulse or pressure she is to be DO NOT RESUSCITATE. However she does get the limited treatment if she is found down with a pulse and a pressure. Code Status: Do Not Attempt Resuscitation Time spent on advance care plannin minutes
[2024-06-03 06:00] LABS: BASOPHILS # (AUTO) 0.1 10^3/uL (0.0-0.1); BASOPHILS % (AUTO) 0.5 %; EOSINOPHILS # (AUTO) 0.2 10^3/uL (0.0-0.7); EOSINOPHILS % (AUTO) 1.6 %; HCT - HEMATOCRIT 40.2 % (37.0-47.0); HGB - HEMOGLOBIN 12.5 g/dL (12.0-16.0); LYMPHOCYTES # (AUTO) 2.6 10^3/uL (1.5-3.5); LYMPHOCYTES % (AUTO) 28.5 %; MEAN CORPUSCULAR HGB CONC 31.1 g/dL (32.0-36.0); MEAN CORPUSCULAR VOLUME 99.8 fL (81.0-99.0); MEAN PLATELET VOLUME 10.2 fL (7.9-10.8); MONOCYTES # (AUTO) 0.8 10^3/uL (0.0-1.0); MONOCYTES % (AUTO) 8.9 %; NEUTROPHILS # (AUTO) 5.5 10^3/uL (1.5-6.6); PLT - PLATELET COUNT 238 10^3/uL (130-450); RED BLOOD COUNT 4.03 10^6/uL (4.20-5.40); RED CELL DISTRIBUTION WIDTH 13.3 % (12.0-15.0); WHITE BLOOD COUNT 9.2 x10^3/uL (4.8-10.8)
[2024-06-03 06:17] LABS: CALCIUM 9.2 mg/dL (8.5-10.3); CREATININE 0.9 mg/dL (0.6-1.3)
[2024-06-03] MEDS: LEVOTHYROXINE 75 MCG TABLET PO SCH (07:53)
[2024-06-03] MEDS: polyethylene glycoL 3350 17 GM PACKET PO SCH (08:29)
[2024-06-03] MEDS ORDERED: ACETAMINOPHEN 500 MG TABLET PO PRN (09:17)
--- NOTE | 2024-06-03 11:31 | PROVIDER PROGRESS NOTE ---
Documented by User: Suad Hammer 06/03/24 17:58 Subjective Prog Note Date Prog Note Date: 06/03/24 Prog Note Time: 09:06 Subjective Pt reports feeling: No change Subjective: Ms. Dillon is a pleasant 83 year old female who is presented for hypoxia due to a possible COPD exacerbation. Today she reports her shortness of breath is the same as yesterday. Has not improved or got worse. She reports she experiences more short of breath when she does any physical activity. Patient also reports her legs hurt today. She is unable to describe the characteristic of her pain. Upon ROS, patient admits to the presence of sputum when she coughs however is unable to describe me the color of the sputum. Patient denies fever, chills, night sweats, chest pain or chest tightness, abdmonial pain, nausea, vomitting, diarrhea, and constipation. Current Medications Current Medications Current Medications: Current Medications Generic Name Dose Route Start Last Admin Trade Name Freq PRN Reason Stop Dose Admin Albuterol 2.5 mg 06/01/24 12:19 06/01/24 16:31 Albuterol Neb 2.5 Mg/3 Ml INH 2.5 mg RTQ4H PRN Administration Wheezing Albuterol/Ipratropium 3 ml 06/01/24 19:00 06/03/24 07:26 Ipratropium/Albuterol 3 Ml Neb INH 3 ml RTQID KINJAL Administration Ascorbic Acid 500 mg 06/02/24 09:00 06/03/24 08:31 Ascorbic Acid 500 Mg Tablet PO 500 mg DAILY KINJAL Administration Budesonide 0.5 mg 06/01/24 19:00 06/03/24 07:27 Budesonide 0.5 Mg/2 Ml Neb INH 0.5 mg RTBID KINJAL Administration Divalproex Sodium 250 mg 06/02/24 09:00 06/02/24 08:[address] 250 Mg Tablet PO 250 mg DAILY KINJAL Administration Divalproex Sodium 125 mg 06/01/24 20:00 06/02/24 20:[address] 125 Mg Tablet PO 125 mg 1400,2000 KINJAL Administration Docusate Sodium 200 mg 06/01/24 21:00 06/03/24 08:31 Docusate Sodium 100 Mg Capsule PO 200 mg BID KINJAL Administration Enoxaparin Sodium 40 mg 06/02/24 09:00 06/03/24 08:29 Enoxaparin 40 Mg/0.4 Ml Syringe SUBQ 40 mg DAILY KINJAL Administration Formoterol Fumarate 20 mcg 06/01/24 19:00 06/03/24 07:27 Formoterol Fumarate Neb 20 Mcg/2 Ml INH 20 mcg RTBID KINJAL Administration Ceftriaxone Sodium 1 gm/ 100 mls @ 200 mls/hr 06/02/24 09:00 06/03/24 08:29 Sodium Chloride IV 06/06/24 08:59 200 mls/hr DAILY KINJAL Administration Levothyroxine Sodium 75 mcg 06/03/24 08:00 06/03/24 07:53 Levothyroxine 75 Mcg Tablet PO 75 mcg 0700 KINJAL Administration Montelukast Sodium 10 mg 06/02/24 09:00 06/03/24 08:31 Montelukast 10 Mg Tablet PO 10 mg DAILY KINJAL Administration Olanzapine 10 mg 06/01/24 21:00 06/02/24 20:37 Olanzapine Odt 5 Mg Tablet TL 10 mg QPM KINJAL Administration Olanzapine 20 mg 06/02/24 09:00 06/03/24 08:31 Olanzapine Odt 5 Mg Tablet TL 20 mg DAILY KINJAL Administration Ondansetron HCl 4 mg 06/01/24 14:22 Ondansetron 4 Mg/2 Ml Vial IVP Q6HR PRN Nausea / Vomiting Ondansetron HCl 4 mg 06/01/24 14:22 Ondansetron Odt 4 Mg Tablet TL Q6HR PRN Nausea / Vomiting Polyethylene Glycol 17 gm 06/03/24 09:00 06/03/24 08:29 Polyethylene Glycol 3350 17 Gm Packet PO 17 gm DAILY KINJAL Administration Prednisone 40 mg 06/02/24 09:00 06/03/24 08:30 Prednisone 20 Mg Tablet PO 06/05/24 09:01 40 mg DAILY KINJAL Administration Quetiapine Fumarate 300 mg 06/01/24 21:00 06/02/24 20:37 Quetiapine 100 Mg Tablet PO 300 mg QPM KINJAL Administration Quetiapine Fumarate 100 mg 06/02/24 09:00 06/03/24 08:31 Quetiapine 100 Mg Tablet PO 100 mg DAILY KINJAL Administration Senna 8.6 mg 06/01/24 21:00 06/03/24 08:31 Senna 8.6 Mg Tablet PO 8.6 mg BID KINJAL Administration Sodium Chloride 10 ml 06/01/24 14:22 Sodium Chloride Flush 0.9% 10 Ml Syringe IVP PRN PRN NEEDED PER PROVIDER ORDERS Sodium Chloride 10 ml 06/01/24 17:00 06/03/24 08:31 Sodium Chloride Flush 0.9% 10 Ml Syringe IVP 10 ml 0100,0900,1700 KINJAL Administration Objective Vital Signs/Intake & Output Vital Signs: Vital Signs x48h Temp Pulse Pulse Resp BP Pulse Ox O2 Flow Rate 06/03/24 08:12 36.5 C 60 20 133/68 H 93 3 06/03/24 07:28 3 06/03/24 07:28 80 16 3 Intake & Output: Intake & Output 06/01/24 06/02/24 06/03/24 06/04/24 05:59 05:59 05:59 05:59 Intake Total 907 / 907 1820 / 1820 Output Total 1950 / 1950 1500 / 1500 Balance -1043 / -1043 320 / 320 Weight (kg) 101.5 kg Objective General Appearance: positive No acute distress and Alert (Morbidly obese woman who is waching tv) Eyes Bilateral: positive No lid inflammation, Conjunctivae nml and No scleral icterus Neck: positive Nml inspection, Thyroid nml and No JVD Respiratory: positive No respiratory distress and Breath sounds nml Cardiovascular: positive Regular rate & rhythm, No murmur and No gallop Abdomen: positive Non-tender, Nml bowel sounds and No distention Skin: positive Color nml, No rash, Warm and Dry Extremities: positive Nml appearance and No pedal edema Neurologic/Psychiatric: positive Oriented x3 and CN's nml (2-12) Lab Results 06/03/24 04:53 06/03/24 04:53 Other Labs: Lab Results x24hrs 06/03/24 Range/Units 04:53 WBC 9.2 (4.8-10.8) x10^3/uL RBC 4.03 L (4.20-5.40) 10^6/uL Hgb 12.5 (12.0-16.0) g/dL Hct 40.2 (37.0-47.0) % MCV 99.8 H (81.0-99.0) fL MCH 31.0 (27.0-31.0) pg MCHC 31.1 L (32.0-36.0) g/dL RDW 13.3 (12.0-15.0) % Plt Count 238 (130-450) 10^3/uL MPV 10.2 (7.9-10.8) fL Neut # (Auto) 5.5 (1.5-6.6) 10^3/uL Lymph # (Auto) 2.6 (1.5-3.5) 10^3/uL Wetzel # (Auto) 0.8 (0.0-1.0) 10^3/uL Eos # (Auto) 0.2 (0.0-0.7) 10^3/uL Baso # (Auto) 0.1 (0.0-0.1) 10^3/uL Absolute Nucleated RBC 0.00 x10^3/uL Nucleated RBC % 0.0 /100WBC Sodium 142 (135-145) mmol/L Potassium 4.0 (3.5-4.5) mmol/L Chloride 106 (101-111) mmol/L Carbon Dioxide 29 (21-32) mmol/L Anion Gap 7.0 (6-13) BUN 21 H (6-20) mg/dL Creatinine 0.9 (0.6-1.3) mg/dL Estimated GFR (MDRD) 60 L (>89) Glucose 98 (74-104) mg/dL Calcium 9.2 (8.5-10.3) mg/dL ABX Reporting Has patient been on IV antibiotics over the past 48 hours?: Yes Assessment/Plan Problem List (1) Acute and chronic respiratory failure with hypoxia: Impression: - Today is day 3 for an elderly obese female who lives at a [facility] facility due to memory loss, bipolar disorder, and schizophrenia - She presents for progressive cough and shortness of breath in a patient with known COPD. The chest x-ray in the ER does not show pneumonia or congestive heart failure - Continue with albuterol every 4 hours PRN, 10mg Formoterol BID, 40mg PO Prednisone. Prednisone is for 4 days - today is day 3 - She is on 3 L oxygen this morning - O2 sat 93 on oxygen - Patient reports feeling the same. If this was COPD without underlying etiology the patient should have recovered and report feeling better today. I will order an Echo to rule out CHF to confirm if there is nothing else going on (2) COPD exacerbation: Impression: As above. (3) UTI (urinary tract infection): Impression: - Patient has chronic urinary retention per the nursing - A straight cath was not needed to be ordered due to patient using purewick with adequate amount Currently on antibiotics. No culture submitted. UA was possibly with infection. Qualifiers: Hematuria presence: without hematuria Urinary tract infection type: a cute cystitis Qualified Code(s): N30.00 - Acute cystitis without hematuria (4) Schizophrenia: Impression: - Long-term problem per the daughters. They said that she was only to their dad for 2 years before he . But they feel responsible for her. She does have a son who is no longer involved in her life. She is currently at a [facility] facility. They want to make sure she is on her medications and I confirmed that she is on Zyprexa. (5) Decreased mobility and endurance: Impression: Daughter feels that her mom is at baseline. Nursing confirms the patient is able to transition from supine to sitting, sitting to standing with shortness of breath on exertion. At this time we will not order PT or OT Documented by User: Tara Valdez MD 06/03/24 17:58 Objective Lab Results 06/03/24 04:53 06/03/24 04:53 Assessment/Plan Problem List (1) Acute and chronic respiratory failure with hypoxia: (2) COPD exacerbation: (3) UTI (urinary tract infection): Qualifiers: Hematuria presence: without hematuria Urinary tract infection type: a cute cystitis Qualified Code(s): N30.00 - Acute cystitis without hematuria (4) Schizophrenia: (5) Decreased mobility and endurance:
[2024-06-04 06:09] LABS: BASOPHILS # (AUTO) 0.1 10^3/uL (0.0-0.1); BASOPHILS % (AUTO) 0.6 %; EOSINOPHILS # (AUTO) 0.1 10^3/uL (0.0-0.7); EOSINOPHILS % (AUTO) 1.3 %; HCT - HEMATOCRIT 40.3 % (37.0-47.0); HGB - HEMOGLOBIN 12.9 g/dL (12.0-16.0); LYMPHOCYTES % (AUTO) 31.7 %; MEAN CORPUSCULAR HEMOGLOBIN 31.9 pg (27.0-31.0); MEAN CORPUSCULAR VOLUME 99.5 fL (81.0-99.0); MONOCYTES # (AUTO) 0.7 10^3/uL (0.0-1.0); MONOCYTES % (AUTO) 7.7 %; NEUTROPHILS # (AUTO) 5.5 10^3/uL (1.5-6.6); NEUTROPHILS % (AUTO) 58.2 %; PLT - PLATELET COUNT 241 10^3/uL (130-450); RED BLOOD COUNT 4.05 10^6/uL (4.20-5.40); RED CELL DISTRIBUTION WIDTH 13.3 % (12.0-15.0); WHITE BLOOD COUNT 9.5 x10^3/uL (4.8-10.8)
[2024-06-04 06:31] LABS: CALCIUM 9.3 mg/dL (8.5-10.3); CREATININE 0.9 mg/dL (0.6-1.3); POTASSIUM 4.3 mmol/L (3.5-4.5)
[2024-06-04] MEDS ORDERED: iohexoL-300 100 ML VIAL ONE (11:01)
[2024-06-04] MEDS: iohexoL-300 100 ML VIAL IVP ONE (11:39)
--- NOTE | 2024-06-04 12:52 | CT Report ---
PROCEDURE: CT Angio Chest INDICATIONS: worsening hypoxia without cause (neg CXR and Echo) TECHNIQUE: Helical axial CT of the chest was obtained during the angiographic phase of an intravenou s contrast injection. Multiplanar and MIP reformats utilized. Radiation dose reduction was achieved u tilizing automated exposure control or adjustment of mA and/or kV according to patient size. COMPARISON: None FINDINGS: Vasculature: No evidence of pulmonary embolism, aortic dissection or aneurysm. Calcified and noncalci fied aortic atherosclerotic plaque Lungs and pleura: Lungs and pleural spaces are clear without pulmonary infiltrate, pneumothorax or pl eural effusion. Mild dependent bibasilar atelectasis associated with low lung volumes Mediastinum: Heart size is normal. No pericardial effusion. No large vessel abnormality. No mediastin al adenopathy by size criteria. Chest wall and lower neck: Thyroid is unremarkable. No axillary or supraclavicular adenopathy by size . Bones: Old ununited right proximal humeral fracture. Upper Abdomen: Unremarkable. IMPRESSION: No evidence of pulmonary embolism, aortic dissection or aneurysm Mild dependent platelike atelectasis associated with low lung volumes Reviewed by: Armando Denton MD on 06/04/2024 11:50 AM YOSELIN Approved by: Armando Denton MD on 06/04/2024 11:50 AM AKDT Station ID: [id number]
--- NOTE | 2024-06-04 13:45 | Discharge Summary ---
Discharge Summary Admit Date: 05/30/24 Discharge Date: 06/04/24 Discharging Provider: Tara Valdez MD Primary Care Provider: CINTHYA Lee Code Status: Do Not Attempt Resuscitation Discharge [facility] ALLERGIES Allergies Allergy/AdvReac Type Severity Reaction Status Date / Time Penicillins Allergy Respiratory Verified 06/01/24 08:25 Sulfa (Sulfonamide Allergy Hives Verified 06/01/24 08:25 Antibiotics) MEDICATIONS Ambulatory Orders Medication Instructions Recorded Confirmed montelukast 10 mg tablet 10 mg PO DAILY 12/23/20 06/01/24 olanzapine 10 mg tablet (Zyprexa) 10 mg PO DAILY 12/23/20 06/02/24 olanzapine 20 mg tablet (Zyprexa) 20 mg PO QPM 12/23/20 06/01/24 quetiapine 100 mg tablet 100 mg PO DAILY 07/18/21 06/02/24 acetaminophen 325 mg tablet 650 mg PO BID 06/01/24 06/01/24 ascorbate calcium (vitamin C) 500 500 mg PO DAILY 06/01/24 06/01/24 mg tablet divalproex 125 mg tablet,delayed 250 mg PO .COMPLEX 06/01/24 06/01/24 release docusate sodium 100 mg capsule 200 mg PO BID 06/01/24 06/01/24 fluticasone fur. 100 mcg-umeclid 1 inh inhalation ONCE 06/01/24 06/01/24 62.5 mcg-vilant 25 mcg inhalat.powder (Trelegy Ellipta) ipratropium bromide 17 2 inh inhalation BID PRN shortness 06/01/24 06/01/24 mcg/actuation HFA aerosol inhaler of breath or wheezing (Atrovent HFA) levothyroxine 75 mcg tablet 75 mcg PO QDAC 06/01/24 06/02/24 metronidazole 500 mg tablet 500 mg PO BID 06/01/24 06/01/24 nystatin 100,000 unit/gram topical 1 applic topical TID PRN rash 06/01/24 06/01/24 cream nystatin 100,000 unit/gram topical 1 applic topical TID PRN rash 06/01/24 06/01/24 powder (Nyamyc) quetiapine 300 mg tablet 300 mg PO QPM 06/01/24 06/01/24 quetiapine 50 mg tablet 50 mg PO 1400 06/01/24 06/02/24 sennosides 8.6 mg tablet (senna) 8.6 mg PO BID 06/01/24 06/01/24 LABS 06/04/24 05:40 06/04/24 05:40 Discharge Plan Discharge Patient Disposition: [facility], Self Care Condition: Stable Medically Cleared Date:: 06/04/24 Prescriptions: No Action olanzapine [Zyprexa] 10 MG tablet 10 mg PO DAILY montelukast 10 MG tablet 10 mg PO DAILY olanzapine [Zyprexa] 20 MG tablet 20 mg PO QPM quetiapine 100 MG tablet 100 mg PO DAILY divalproex 125 mg tablet,delayed release (DR/EC) 250 mg PO .COMPLEX Rx Instructions: 250 mg orally qam and 125mg at 2pm and 8pm; quetiapine 300 mg tablet 300 mg PO QPM levothyroxine 75 mcg tablet 75 mcg PO QDAC Atrovent HFA 17 mcg/actuation HFA aerosol inhaler 2 inh INHALATION BID PRN (Reason: shortness of breath or wheezing) quetiapine 50 mg tablet 50 mg PO 1400 Trelegy Ellipta 100-62.5-25 mcg blister with device 1 inh INHALATION ONCE acetaminophen 325 mg tablet 650 mg PO BID docusate sodium 100 mg capsule 200 mg PO BID metronidazole 500 mg tablet 500 mg PO BID Patient Comments: take 1 tablet by mouth twice a day for 7 days end 06/04/24 sennosides [senna] 8.6 mg tablet 8.6 mg PO BID ascorbate calcium (vitamin C) 500 mg tablet 500 mg PO DAILY nystatin 100,000 unit/gram cream 1 applic TOPICAL TID PRN (Reason: rash) nystatin [Nyamyc] 100,000 unit/gram powder 1 applic TOPICAL TID PRN (Reason: rash) Print Language: Czech Stand Alone Forms: PCP List Follow-up Care: KARAN GRECO, CHILD THERAPIST, DNP, HOST/HOSTESS [Primary Care Provider] -
--- NOTE | 2024-06-04 17:01 | PROVIDER PROGRESS NOTE ---
Subjective Prog Note Date Prog Note Date: 06/04/24 Prog Note Time: 16:49 Subjective Subjective: She is not much different than she was yesterday. She is 88% on room air and is requiring 3 L to get her up to 90%. In speaking to respiratory therapy he reminds me that he did pulmonary function studies on her over a year ago. She had very poor inspiratory response. He could not do a DLCO on her because she could not do enough negative inspiratory flow. Her PFTs were interpreted as having interstitial lung disease. So an overview this lady has been admitted as COPD exacerbation with hypoxic respiratory failure but she is not responding to our usual treatments of steroids, nebs, antibiotics. I then did an echocardiogram looking for congestive heart failure and that echo was essentially normal for her. Unchanged from previous echoes. She herself is vague, rambling, denies any pain. Denies shortness of breath. I had Social work spoke to her senior care to verify what her baseline status was. Again it is repeated this patient is essentially wheelchair-bound or bedbound. She is very sedentery and does not get up except to get out of the bed to take a few steps to the wheelchair and back again. Current Medications Current Medications Current Medications: Current Medications Generic Name Dose Route Start Last Admin Trade Name Freq PRN Reason Stop Dose Admin Acetaminophen 500 mg 06/03/24 09:17 Acetaminophen 500 Mg Tablet PO Q4HR PRN Pain or Fever > 38C (100.4F) Albuterol 2.5 mg 06/01/24 12:19 06/01/24 16:31 Albuterol Neb 2.5 Mg/3 Ml INH 2.5 mg RTQ4H PRN Administration Wheezing Albuterol/Ipratropium 3 ml 06/01/24 19:00 06/04/24 11:00 Ipratropium/Albuterol 3 Ml Neb INH 3 ml RTQID KINJAL Administration Ascorbic Acid 500 mg 06/02/24 09:00 06/04/24 09:29 Ascorbic Acid 500 Mg Tablet PO 500 mg DAILY KINJAL Administration Budesonide 0.5 mg 06/01/24 19:00 06/04/24 06:15 Budesonide 0.5 Mg/2 Ml Neb INH 0.5 mg RTBID KINJAL Administration Divalproex Sodium 250 mg 06/02/24 09:00 06/04/24 09:[address] 250 Mg Tablet PO 250 mg DAILY KINJAL Administration Divalproex Sodium 125 mg 06/01/24 20:00 06/04/24 13:[address] 125 Mg Tablet PO 125 mg 1400,1999 KINJAL Administration Docusate Sodium 200 mg 06/01/24 21:00 06/04/24 09:29 Docusate Sodium 100 Mg Capsule PO 200 mg BID KINJAL Administration Enoxaparin Sodium 40 mg 06/02/24 09:00 06/04/24 09:27 Enoxaparin 40 Mg/0.4 Ml Syringe SUBQ 40 mg DAILY KINJAL Administration Formoterol Fumarate 20 mcg 06/01/24 19:00 06/04/24 06:15 Formoterol Fumarate Neb 20 Mcg/2 Ml INH 20 mcg RTBID KINJAL Administration Ceftriaxone Sodium 1 gm/ 100 mls @ 200 mls/hr 06/02/24 09:00 06/04/24 12:54 Sodium Chloride IV 06/06/24 08:59 Infused DAILY KINJAL Infusion Levothyroxine Sodium 75 mcg 06/03/24 08:00 06/04/24 07:03 Levothyroxine 75 Mcg Tablet PO 75 mcg 0700 KINJAL Administration Montelukast Sodium 10 mg 06/02/24 09:00 06/04/24 09:28 Montelukast 10 Mg Tablet PO 10 mg DAILY KINJAL Administration Olanzapine 10 mg 06/01/24 21:00 06/03/24 20:24 Olanzapine Odt 5 Mg Tablet TL 10 mg QPM KINJAL Administration Olanzapine 20 mg 06/02/24 09:00 06/04/24 09:29 Olanzapine Odt 5 Mg Tablet TL 20 mg DAILY KINJAL Administration Ondansetron HCl 4 mg 06/01/24 14:22 Ondansetron 4 Mg/2 Ml Vial IVP Q6HR PRN Nausea / Vomiting Ondansetron HCl 4 mg 06/01/24 14:22 Ondansetron Odt 4 Mg Tablet TL Q6HR PRN Nausea / Vomiting Polyethylene Glycol 17 gm 06/03/24 09:00 06/04/24 09:27 Polyethylene Glycol 3350 17 Gm Packet PO 17 gm DAILY KINJAL Administration Prednisone 40 mg 06/02/24 09:00 06/04/24 09:28 Prednisone 20 Mg Tablet PO 06/05/24 09:01 40 mg DAILY KINJAL Administration Quetiapine Fumarate 300 mg 06/01/24 21:00 06/03/24 20:24 Quetiapine 100 Mg Tablet PO 300 mg QPM KINJAL Administration Quetiapine Fumarate 100 mg 06/02/24 09:00 06/04/24 09:28 Quetiapine 100 Mg Tablet PO 100 mg DAILY KINJAL Administration Senna 8.6 mg 06/01/24 21:00 06/04/24 09:28 Senna 8.6 Mg Tablet PO 8.6 mg BID KINJAL Administration Sodium Chloride 10 ml 06/01/24 14:22 Sodium Chloride Flush 0.9% 10 Ml Syringe IVP PRN PRN NEEDED PER PROVIDER ORDERS Sodium Chloride 10 ml 06/01/24 17:00 06/04/24 09:30 Sodium Chloride Flush 0.9% 10 Ml Syringe IVP 10 ml 0100,0900,1700 KINJAL Administration Objective Vital Signs/Intake & Output Reviewed Vital Signs: Yes Vital Signs: Vital Signs x48h Temp Pulse Resp BP Pulse Ox O2 Flow Rate 06/04/24 15:47 36.5 C 85 24 133/81 H 94 3 06/04/24 11:44 20 88 L 3 Intake & Output: Intake & Output 06/02/24 06/03/24 06/04/24 06/05/24 05:59 05:59 05:59 05:59 Intake Total 907 / 907 1820 / 1820 1220 / 1220 340 / 340 Output Total 1950 / 1950 1500 / 1500 2850 / 2850 800 / 800 Balance -1043 / -1043 320 / 320 -1630 / -1630 -460 / -460 Weight (kg) 101.5 kg Objective General Appearance: positive No acute distress and Other (5 foot 7 inches, 101 kg. Overall appearance is 1 of a very obese elderly female. She is comfortable at rest and speaking to me.) Eyes Bilateral: positive Normal inspection and PERRL ENT: positive No signs of dehydration Neck: positive No JVD; negative Stiff neck Respiratory: positive Chest non-tender, No respiratory distress and Wheezes (Come and go. This morning I am not hearing any wheezing at all.); negative Breath sounds nml (I can hear Air movement in the mid lungs in upper apices, but diminished at the bases. No egophony) Cardiovascular: positive Regular rate & rhythm and No murmur Abdomen: positive Non-tender, No organomegaly and Nml bowel sounds Skin: positive Warm and Pallor Extremities: positive Non-tender, Full ROM and Pedal edema (trace around shins, ankles) Neurologic/Psychiatric: positive CN's nml (2-12), Disoriented to place and Disoriented to time; negative Motor nml (Diffuse generalized weakness. She is able to use her hands, help me help her sit up in bed, but beyond that needs a two-person assist to be able to sit up, transfer to side of bed and put her feet on the ground and stand.) Lab Results 06/04/24 05:40 06/04/24 05:40 Other Labs: Lab Results x24hrs 06/04/24 Range/Units 05:40 WBC 9.5 (4.8-10.8) x10^3/uL RBC 4.05 L (4.20-5.40) 10^6/uL Hgb 12.9 (12.0-16.0) g/dL Hct 40.3 (37.0-47.0) % MCV 99.5 H (81.0-99.0) fL MCH 31.9 H (27.0-31.0) pg MCHC 32.0 (32.0-36.0) g/dL RDW 13.3 (12.0-15.0) % Plt Count 241 (130-450) 10^3/uL MPV 10.0 (7.9-10.8) fL Neut # (Auto) 5.5 (1.5-6.6) 10^3/uL Lymph # (Auto) 3.0 (1.5-3.5) 10^3/uL [place] # (Auto) 0.7 (0.0-1.0) 10^3/uL Eos # (Auto) 0.1 (0.0-0.7) 10^3/uL Baso # (Auto) 0.1 (0.0-0.1) 10^3/uL Absolute Nucleated RBC 0.00 x10^3/uL Nucleated RBC % 0.0 /100WBC Sodium 141 (135-145) mmol/L Potassium 4.3 (3.5-4.5) mmol/L Chloride 105 (101-111) mmol/L Carbon Dioxide 31 (21-32) mmol/L Anion Gap 5.0 L (6-13) BUN 25 H (6-20) mg/dL Creatinine 0.9 (0.6-1.3) mg/dL Estimated GFR (MDRD) 60 L (>89) Glucose 89 (74-104) mg/dL Calcium 9.3 (8.5-10.3) mg/dL Assessment/Plan Problem List (1) Acute and chronic respiratory failure with hypoxia: Impression: - Today is day 4 for an elderly obese female who [facility] due to memory loss, bipolar disorder, and schizophrenia - She presents for progressive cough and shortness of breath in a patient with known COPD. The chest x-ray in the ER does not show pneumonia or congestive heart failure. Respiratory shares with me that he has thought of some type of neuromuscular disease as the cause of poor inhalation effort. - Continue with albuterol every 4 hours PRN, 10mg Formoterol BID, 40mg PO Prednisone. Prednisone is for 4 days - today is day 4 so I will stop the medication today (she has not truly improved and my judgment is based on still requiring 02). She is on day 4 of rocephin and I will stop it after tomorrow's dose. - She is on 3 L oxygen this morning - O2 sat 90% on oxygen and she is not 02 at home. I have ruled out CHF as a contributing factor to her hypoxia. - Patient reports feeling the same. --I will order a CT angiogram of the chest to make sure I am not missing a PE. If she doesn't have a PE then she may be at a new poor baseline. If she is at [facility], I will anticipate dc tomorrow back to her [facility]. (2) COPD exacerbation: Impression: As above. (3) UTI (urinary tract infection): Impression: - Patient has chronic urinary retention per the nursing - A straight cath was not needed to be ordered due to patient using purewick with adequate amount Currently on antibiotics. No culture submitted. UA was possibly with infection. Qualifiers: Hematuria presence: without hematuria Urinary tract infection type: a cute cystitis Qualified Code(s): N30.00 - Acute cystitis without hematuria (4) Schizophrenia: Impression: - Long-term problem per the daughters. They said that she was only to their dad for 2 years before he . But they feel responsible for her. She does have a son who is no longer involved in her life. She is currently at a pen[facility] facility. They want to make sure she is on her medications and I confirmed that she is on Zyprexa. 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 Nursing confirms the patient is able to transition from supine to sitting, sitting to standing with shortness of breath on exertion. Social work confirms she is relatively immobile. I will order assessment from PT and OT and to see if we can improve her status.
[2024-06-05 05:59] LABS: BASOPHILS % (AUTO) 0.4 %; EOSINOPHILS # (AUTO) 0.1 10^3/uL (0.0-0.7); EOSINOPHILS % (AUTO) 1.2 %; HCT - HEMATOCRIT 39.8 % (37.0-47.0); HGB - HEMOGLOBIN 12.6 g/dL (12.0-16.0); LYMPHOCYTES # (AUTO) 3.3 10^3/uL (1.5-3.5); LYMPHOCYTES % (AUTO) 33.7 %; MEAN CORPUSCULAR HEMOGLOBIN 31.2 pg (27.0-31.0); MEAN CORPUSCULAR HGB CONC 31.7 g/dL (32.0-36.0); MEAN CORPUSCULAR VOLUME 98.5 fL (81.0-99.0); MEAN PLATELET VOLUME 10.1 fL (7.9-10.8); MONOCYTES # (AUTO) 0.8 10^3/uL (0.0-1.0); MONOCYTES % (AUTO) 8.4 %; NEUTROPHILS # (AUTO) 5.5 10^3/uL (1.5-6.6); NEUTROPHILS % (AUTO) 55.6 %; PLT - PLATELET COUNT 241 10^3/uL (130-450); RED BLOOD COUNT 4.04 10^6/uL (4.20-5.40); RED CELL DISTRIBUTION WIDTH 13.2 % (12.0-15.0); WHITE BLOOD COUNT 9.9 x10^3/uL (4.8-10.8)
[2024-06-05 06:15] LABS: CALCIUM 9.2 mg/dL (8.5-10.3); CREATININE 0.9 mg/dL (0.6-1.3); POTASSIUM 4.3 mmol/L (3.5-4.5)
[2024-06-05 07:58] VITALS: O2SAT 96
--- NOTE | 2024-06-05 12:29 | Discharge Summary ---
"Discharge Summary Admit Date: 06/01/24 Discharge Date: 06/05/24 Discharging Provider: Tara Valdez MD Primary Care Provider: Karan Greco Code Status: Do Not Attempt Resuscitation Discharge Facility Name: [facility] [place], [place] DIAGNOSES Discharge Diagnoses with Status of Each Condition: 1. Acute on chronic respiratory failure with hypoxia (Now chronic mild hypoxia since room air sats 89% duration) 2. COPD exacerbation 3. Severe COPD 4. Urinary retention Requiring 2 straight cath in the hospital 5. Decreased mobility and endurance, Several years duration, patient is in a wheelchair or in bed. Can go from supine to sitting and stand to transfer and walk a few steps with a walker. 6. Schizophrenic disorder 7. UTI HPI History of Present Illness: 83-year-old female with past medical history significant for COPD, on room air 02This guera lady has a history of schizophrenia. Bipolar disorder. Has been living in various group homes over the last 20 years since the of her who she been to for about 2-1/2 years. APS took her out of her home in [place] over 20 years ago. Her DPOA is her stepdaughter. Patient is DNR. Respiratory therapy has seen this patient for pulmonary function studies over a year ago. He describes a restrictive lung pattern with very poor effort on her part. Taking a deep breath is difficult for her. She is a number smoker. She is not on home O2. Has a gradual deterioration in her overall mobility. She also has had gradually increasing weight and is considered morbidly obese. Between the obesity and the dyspnea on exertion from COPD she finds it difficult to ambulate. She is described as completely dependent for her activities of daily living. But can feed herself. Able to work with caregivers to transfer her. Currently on antibiotics for UTI. Presents to the ER with complaints of cough, dyspnea. She says this has been gradually worsening over the past 3 days. She denies productive cough, fever, chills, chest pain. In the ER, chest x-ray was performed which was negative for any acute abnormalities. Respiratory viral panel was negative. Patient was given Decadron and Rocephin/azithromycin and hospitalist was contacted for admission CONSULTS | PROCEDURES Procedures: 1. Chest x-ray without acute cardiopulmonary process on admission 2. CT of the chest with angiogram does not have any evidence of pulmonary embolism, aortic dissection or aneurysm. She has calcified and noncalcified aortic atherosclerotic plaques. Lung and pleural spaces are clear without infiltrate, pneumothorax or pleural effusion. Mildly dependent basilar atelectasis associated with low lung volumes. 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 3. Transthoracic echo done June 03 has overall left ventricular systolic function is normal with an ejection fraction of 65 to 70%. Normal diastology. No concerning cardiac valve disease noted. HOSPITAL COURSE Hospital Course: (1) Acute and chronic respiratory failure with hypoxia: Completed 4 days of steroids. -Also received albuterol every 4 hours PRN, 10mg Formoterol BID, 40mg PO Prednisone.She completed 5 days of Rocephin and 3 days of azithromycin. - Required up to 3 L of nasal cannula oxygen. She really did not have much improvement with exam. She would have waxing and waning wheezing. Overall she is very sedentary. No use of accessory muscles. Because she was requiring oxygen out of proportion to what was described as mild to moderate COPD, we did further workup to establish why her hypoxemia was present. We evaluated her for PE and that was negative. We did an echocardiogram looking for valvular heart disease or reduced ejection fraction and that was not present. At discharge respiratory therapy evaluated her and ambulated her in the hallway for 10 feet. O2 sat was 89% on room air with ambulation. As such she does not meet criteria to receive oxygen and her assisted. (2) COPD exacerbation: As above. (3) UTI (urinary tract infection): - Patient has chronic urinary retention per the nursing - A straight cath was ordered twice due to urinary retention but not needed to be ordered due to patient using purewick with adequate amount She was indirectly treated for this since she was on antibiotics for COPD. No culture submitted. UA was possibly with infection. Qualifiers: Hematuria presence: without hematuria Urinary tract infection type: a cute cystitis Qualified Code(s): N30.00 - Acute cystitis without hematuria (4) Schizophrenia: - Long-term problem per the daughters. They said that she was only to their dad for 2 years before he . But they feel responsible for her. She does have a son who is no longer involved in her life. She is currently at a shelter facility. They want to make sure she is on her medications and I confirmed that she is on Zyprexa. I also had advance care planning conversation with her BRAYAN/isabelughter Isabelle. Daughter confirms that her stepmom is a DO NOT RESUSCITATE. A POLST form was filled out. 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 Nursing confirms the patient is able to transition from supine to sitting, sitting to standing with shortness of breath on exertion. Social work confirms she is relatively immobile.1 plan I did order PT and OT. But, when we spoke to her assisted, they verified that she truly is at baseline. I did not see any reason to then do evaluation if the patient was at baseline. ALLERGIES Allergies Allergy/AdvReac Type Severity Reaction Status Date / Time Penicillins Allergy Respiratory Verified 06/01/24 08:25 Sulfa (Sulfonamide Allergy Hives Verified 06/01/24 08:25 Antibiotics) MEDICATIONS Ambulatory Orders Medication Instructions Recorded Confirmed montelukast 10 mg tablet 10 mg PO DAILY 12/23/20 06/01/24 olanzapine 10 mg tablet (Zyprexa) 10 mg PO DAILY 12/23/20 06/02/24 olanzapine 20 mg tablet (Zyprexa) 20 mg PO QPM 12/23/20 06/01/24 quetiapine 100 mg tablet 100 mg PO DAILY 07/18/21 06/02/24 acetaminophen 325 mg tablet 650 mg PO BID 06/01/24 06/01/24 ascorbate calcium (vitamin C) 500 500 mg PO DAILY 06/01/24 06/01/24 mg tablet divalproex 125 mg tablet,delayed 250 mg PO .COMPLEX 06/01/24 06/01/24 release docusate sodium 100 mg capsule 200 mg PO BID 06/01/24 06/01/24 fluticasone fur. 100 mcg-umeclid 1 inh inhalation DAILY 06/01/24 06/05/24 62.5 mcg-vilant 25 mcg inhalat.powder (Trelegy Ellipta) ipratropium bromide 17 2 inh inhalation BID shortness of 06/01/24 06/05/24 mcg/actuation HFA aerosol inhaler breath or wheezing (Atrovent HFA) levothyroxine 75 mcg tablet 75 mcg PO QDAC 06/01/24 06/02/24 metronidazole 500 mg tablet 500 mg PO BID 06/01/24 06/01/24 nystatin 100,000 unit/gram topical 1 applic topical TID PRN rash 06/01/24 06/01/24 cream nystatin 100,000 unit/gram topical 1 applic topical TID PRN rash 06/01/24 06/01/24 powder (Nyamyc) quetiapine 300 mg tablet 300 mg PO QPM 06/01/24 06/01/24 quetiapine 50 mg tablet 50 mg PO 1400 06/01/24 06/02/24 sennosides 8.6 mg tablet (senna) 8.6 mg PO BID 06/01/24 06/01/24 PHYSICAL EXAM AT DISCHARGE General Appearance: positive No acute distress, Alert and Other (5 feet 7 inches tall, 101.5 kg. Vague affect. Occasionally very chatty and interactive alternating with flat, uninvolved personality) Eyes Bilateral: positive No scleral icterus ENT: positive No signs of dehydration Neck: positive No JVD; negative Stiff neck Respiratory: positive No respiratory distress and Other (Diminished breath sounds at the bases. Poor respiratory excursion and that she has slow, shallow respirations. No wheezing today.) Cardiovascular: positive Regular rate & rhythm, No murmur and No gallop Abdomen: positive Non-tender (Obese abdominal pannus), No organomegaly and Nml bowel sounds Skin: positive Warm, Dry and Pallor Extremities: positive Pedal edema (trace round her ankles) Neurologic/Psychiatric: positive CN's nml (2-12), Motor nml (poor generalized conditioning ) and Disoriented to time LABS 06/05/24 05:26 06/05/24 05:26 TIME SPENT Time Spent in Discharge (Minutes): 45 Discharge Plan Discharge Patient Disposition: SKILLED NURSING, Self Care Condition: Stable Medically Cleared Date:: 06/04/24 Prescriptions: Continued olanzapine [Zyprexa] 10 MG tablet 10 mg PO DAILY montelukast 10 MG tablet 10 mg PO DAILY olanzapine [Zyprexa] 20 MG tablet 20 mg PO QPM quetiapine 100 MG tablet 100 mg PO DAILY divalproex 125 mg tablet,delayed release (DR/EC) 250 mg PO .COMPLEX Rx Instructions: 250 mg orally qam and 125mg at 2pm and 8pm; quetiapine 300 mg tablet 300 mg PO QPM levothyroxine 75 mcg tablet 75 mcg PO QDAC Atrovent HFA 17 mcg/actuation HFA aerosol inhaler 2 inh INHALATION BID quetiapine 50 mg tablet 50 mg PO 1400 Trelegy Ellipta 100-62.5-25 mcg blister with device 1 inh INHALATION DAILY acetaminophen 325 mg tablet 650 mg PO BID docusate sodium 100 mg capsule 200 mg PO BID metronidazole 500 mg tablet 500 mg PO BID Patient Comments: take 1 tablet by mouth twice a day for 7 days end 06/04/24 sennosides [senna] 8.6 mg tablet 8.6 mg PO BID ascorbate calcium (vitamin C) 500 mg tablet 500 mg PO DAILY nystatin 100,000 unit/gram cream 1 applic TOPICAL TID PRN (Reason: rash) nystatin [Nyamyc] 100,000 unit/gram powder 1 applic TOPICAL TID PRN (Reason: rash) Activity Restrictions: Activity as Tolerated Diet: Low Sodium Health Concerns: 83-year-old female with past medical history significant for COPD, on room air 02This guera lady has a history of schizophrenia. Bipolar disorder. Has been living in various group homes over the last 20 years since the of her who she been to for about 2-1/2 years. APS took her out of her home in [place] over 20 years ago. Her DPOA is her stepdaughter. Patient is DNR. Respiratory therapy has seen this patient for pulmonary function studies over a year ago. He describes a restrictive lung pattern with very poor effort on her part. Taking a deep breath is difficult for her. She is a number smoker. She is not on home O2. Has a gradual deterioration in her overall mobility. She also has had gradually increasing weight and is considered morbidly obese. Between the obesity and the dyspnea on exertion from COPD she finds it difficult to ambulate. She is described as completely dependent for her activities of daily living. But can feed herself. Able to work with caregivers to transfer her. Currently on antibiotics for UTI. Presents to the ER with complaints of cough, dyspnea. She says this has been gradually worsening over the past 3 days. She denies productive cough, fever, chills, chest pain. In the ER, chest x-ray was performed which was negative for any acute abnormalities. Respiratory viral panel was negative. Patient was given Decadron and Rocephin/azithromycin and hospitalist was contacted for admission (1) Acute and chronic respiratory failure with hypoxia: Completed 4 days of steroids. -Also received albuterol every 4 hours PRN, 10mg Formoterol BID, 40mg PO Prednisone.She completed 5 days of Rocephin and 3 days of azithromycin. - Required up to 3 L of nasal cannula oxygen. She really did not have much improvement with exam. She would have waxing and waning wheezing. Overall she is very sedentary. No use of accessory muscles. Because she was requiring oxygen out of proportion to what was described as mild to moderate COPD, we did further workup to establish why her hypoxemia was present. We evaluated her for PE and that was negative. We did an echocardiogram looking for valvular heart disease or reduced ejection fraction and that was not present. At discharge respiratory therapy evaluated her and ambulated her in the hallway for 10 feet. O2 sat was 89% on room air with ambulation. As such she does not meet criteria to receive oxygen and her assisted. (2) COPD exacerbation: As above. (3) UTI (urinary tract infection): - Patient has chronic urinary retention per the nursing - A straight cath was ordered twice due to urinary retention but not needed to be ordered due to patient using purewick with adequate amount She was indirectly treated for this since she was on antibiotics for COPD. No culture submitted. UA was possibly with infection. Qualifiers: Hematuria presence: without hematuria Urinary tract infection type: a cute cystitis Qualified Code(s): N30.00 - Acute cystitis without hematuria (4) Schizophrenia: - Long-term problem per the daughters. They said that she was only to their dad for 2 years before he . But they feel responsible for her. She does have a son who is no longer involved in her life. She is currently at a shelter facility. They want to make sure she is on her medications and I confirmed that she is on Zyprexa. I also had advance care planning conversation with her DPOA/stepdaughter Isabelle. Daughter confirms that her stepmom is a DO NOT RESUSCITATE. A POLST form was filled out. 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 Nursing confirms the patient is able to transition from supine to sitting, sitting to standing with shortness of breath on exertion. Social work confirms she is relatively immobile.1 plan I did order PT and OT. But, when we spoke to her assisted, they verified that she truly is at baseline. I did not see any reason to then do evaluation if the patient was at baseline. Care Plan Goals: Is to return to her assisted. Plan is permanent placement there. Assessment: Alert with waxing and waning alertness. Still thinks that her is alive and living in [facility] even though he is been for 20 years. Follows commands. Overall severely diminished mobility due to weight, deconditioning, and her COPD. Plan of Treatment: She has completed antibiotics and steroids at the hospital. I am not changing her medications at discharge and I am not adding any new ones. Not a candidate for oxygen. Print Language: Sammarinese Patient Instructions: Chronic Lung Disease Be Active Stand Alone Forms: SNF Discharge Follow-up Care: KARAN GRECO, NUTRITION SERVICES MANAGER, DNP, [employer] [Primary Care Provider] -"
== END 2024-06-05 14:10 | disposition home or self-care (01) | DRG 189 ==
LOC: ED 07:54 → MS2 12:06
PROVIDERS: ADMIT Nurse Practitioner Acute Care; ATTEND Nurse Practitioner Acute Care
DX: J96.21 Acute and chronic respiratory failure with hypoxia; Z66 Do not resuscitate; F20.3 Undifferentiated schizophrenia; Z20.822 Contact with and (suspected) exposure to COVID-19; Z79.899 Other long term (current) drug therapy; E66.01 Morbid (severe) obesity due to excess calories; E66.9 Obesity, unspecified; N30.00 Acute cystitis without hematuria; F31.9 Bipolar disorder, unspecified; Z20.818 Contact with and (suspected) exposure to other bacterial communicable diseases; J44.1 Chronic obstructive pulmonary disease with (acute) exacerbation; R33.9 Retention of urine, unspecified; Z87.891 Personal history of nicotine dependence; Z68.35 Body mass index [BMI] 35.0-35.9, adult; Z20.828 Contact with and (suspected) exposure to other viral communicable diseases; Z79.890 Hormone replacement therapy